=== PATIENT | female | born 1995 | race Caucasian/White ===

== ENCOUNTER 2017-05-29 18:39 | Emergency (ER) | payer OTHER ==
[~2017-05-29] VITALS: Ht 147.3 cm; Wt 69.9 kg
[~2017-05-29 18:39] MED LIST: ACET-6134 PO
[2017-05-29 18:41] VITALS: BP 134/83
--- NOTE | 2017-05-29 19:05 | NUR ---
PT TAKEN TO BED 8
--- NOTE | 2017-05-29 19:20 | NUR ---
22Y F BIB FAMILY; FOUND PT DOWN AT HOME----AMS SOMNOLENT --ORIENTED NAME PLACE EVENT--STATED NOVEMBER 2014 FOR TIME; PT ADMITS TO TAKING SEVERAL PILLS TODAY WITH 2 24OZ BEERS--VISUAL / AUDITORY HALLUCINATIONS--ADMITS "THEY TALK TO HER" WONT SAY WHAT EXACTLY THEY TELL HER---PT RESPONSIVE TO VISUAL HALLUCINATION--STATES SEES SHADOWS BECOMES VERY EMOTIONAL (ANXIOUS, TEARFUL) WHEN ASKED IF SHE WANTS TO HURT HERSELF OR ANYONE ELSE ADMITS FEELING DEPRESSED AND STRESSED LATELY HX---MIGRAINE, LARGE INTESTINE REMOVAL 2010 RX---IBUPROFEN
[2017-05-29 19:45] LABS: BASOPHILS # (AUTO) 0.5 K/uL (0.00-0.22); EOSINOPHILS # (AUTO) 0.1 K/uL (0-0.4); EOSINOPHILS % (AUTO) 1.4 % (0.0-4.0); HEMATOCRIT 44.4 % (36-48); HEMOGLOBIN 14.3 g/dL (12.0-16.0); LYMPHOCYTES # (AUTO) 2.6 K/uL (2.5-16.5); LYMPHOCYTES % (AUTO) 37.7 % (20.5-51.1); MEAN CORPUSCULAR HEMOGLOBIN 29 pg (27-31); MEAN CORPUSCULAR HGB CONC 32 g/dL (33-37); MEAN CORPUSCULAR VOLUME 90 fL (80-94); MONOCYTES # (AUTO) 0.2 K/uL (0.8-1.0); NEUTROPHILS # (AUTO) 3.4 K/uL (1.8-7.7); PLATELET COUNT (AUTO) 266 K/uL (140-450); RED BLOOD CELL COUNT(AUTO) 4.96 MIL/uL (4.20-5.40); RED CELL DISTRIBUTION WIDTH 11.8 % (11.6-13.7); WHITE BLOOD COUNT (AUTO) 6.8 K/uL (4.8-10.8)
[2017-05-29] MEDS ORDERED: NACL 0.9% 1,000 ML IV ONE (19:45)
[2017-05-29] MEDS ORDERED: ONDANSETRON 4 MG/2 ML VIAL IVP ONE (19:45)
[2017-05-29 19:58] LABS: ANION GAP 16.9 (8-16); CALCIUM 8.6 mg/dL (8.5-10.1); CARBON DIOXIDE 24.2 mmol/L (21-32); CREATININE 0.5 mg/dL (0.6-1.3); POTASSIUM 4.1 mmol/L (3.5-5.1)
[2017-05-29 20:03] LABS: AMPHETAMINE, URINE NEG. ng/ml (NEG <=1000); BARBITURATE, URINE NEG. ng/ml (NEG <=200); BENZODIAZEPINE, URINE NEG. ng/mL (NEG <=200); CANNABINOID, URINE NEG. ng/mL (NEG <=50); COCAINE, URINE NEG. ng/mL (NEG <=300); OPIATE, URINE NEG. ng/mL (NEG <=2000); PHENCYCLIDINE SCREEN,URINE NEG. ng/mL (NEG <=25)
[2017-05-29 20:04] LABS: ALBUMIN 4.3 g/dL (3.4-5.0); TOTAL BILIRUBIN 0.2 mg/dL (0.0-1.0); TOTAL PROTEIN, SERUM 8.3 g/dL (6.4-8.2)
[2017-05-29 20:13] LABS: ALCOHOL, BLOOD 149 mg/dL (<3)
[2017-05-29 20:14] LABS: SALICYLATE < 2.8 mg/dL (2.8-20.0)
[2017-05-29 20:15] LABS: ACETAMINOPHEN 40.6 ug/ml (10-30)
--- NOTE | 2017-05-29 20:44 | NUR ---
Dr. Walters evaluating patient at bedside.
[2017-05-29] MEDS ORDERED: HYDROmorphone 1 MG/ML AMP IVP ONE (21:00)
--- NOTE | 2017-05-29 21:24 | NUR ---
PT RETURN FROM CT
[2017-05-29 21:28] LABS: PROTHROMBIN TIME 9.9 secs (10.8-13.4)
[2017-05-30] MEDS ORDERED: HYDROmorphone 1 MG/ML AMP IVP ONE (00:25)
[2017-05-30] MEDS ORDERED: KETOROLAC 30 MG/ML VIAL IVP ONE (00:25)
[2017-05-30] MEDS ORDERED: ONDANSETRON 4 MG/2 ML VIAL IVP ONE (00:50)
[2017-05-30] MEDS ORDERED: ONDANSETRON 4 MG/2 ML VIAL ONE (00:57)
--- NOTE | 2017-05-30 02:10 | NUR ---
IV removed, catheter intact and site benign. Applied folded 4x4 gauze and tape to stop bleeding.
--- NOTE | 2017-05-30 02:21 | NUR ---
Patient discharged with v/s stable. Written and verbal after care instructions given and explained. Patient verbalized understanding. Ambulatory with steady gait. All questions addressed prior to discharge. Advised to follow up with PMD.
[2017-05-30 02:22] VITALS: BP 127/72
== END 2017-05-30 02:21 | disposition home or self-care (01) ==
LOC: MED 18:39
DX: F10.129 Alcohol abuse with intoxication, unspecified (principal); R51 Headache; F45.8 Other somatoform disorders; K21.9 Gastro-esophageal reflux disease without esophagitis; Z79.899 Other long term (current) drug therapy
CPT/HCPCS: 36415; 70450; 80053; 80305; 81025; 84484; 85025; 85610; 96361; 96374; 96375; 96376; 99285; G0480; G0482; J1170; J1885; J2405; J7030; 81002

== ENCOUNTER 2018-07-06 20:36 | Emergency (ER) | payer OTHER ==
[~2018-07-06] VITALS: Ht 162.6 cm; Wt 79.4 kg
--- NOTE | 2018-07-06 20:36 | NUR ---
BIB WHEELCHAIR TO ER BED 5
[2018-07-06 20:49] VITALS: BP 124/80
--- NOTE | 2018-07-06 20:50 | NUR ---
23/F BIB W POSSIBLE OVERDOSE WITH TYLENOL AND MOTRIN TODAY. ADMITS TO INGESTING TO 7 TYLENOL, UNKNOWN MOTRIN DOSING. PT IS SOMNOLENT AND WONT ANSWER QUESTIONS. GCS 13 WITH PURPOSEFUL MOVEMENT AND CONFUSION. 16RR EVEN AND UNLABORED. UNKNOWN MEDICAL HISTORY.
[2018-07-06] MEDS ORDERED: NACL 0.9% 2,000 ML IV ONE (21:15)
[2018-07-06] MEDS ORDERED: ONDANSETRON 4 MG/2 ML VIAL IVP ONE (21:15)
--- NOTE | 2018-07-06 21:22 | NUR ---
SPOKEN WITH POISON CONTROL REP LES Addendum: 07/06/18 at 2225 by [email or web address] LES STATED THAT A TYLENOL NEEDS TO BE DRAWN AT 0030, IF LEVEL >150 OR LF TESTS ELEVATED MUCOMYST TREATMENT RECOMENDED. CHEMISTRY NEEDS TO BE DRAWN INITIALLY. IF ASYMPTOMATIC PT JUST NEEDS TO BE MONITORED CLOSELY. DR. MORAN MADE AWARE.
--- NOTE | 2018-07-06 21:30 | NUR ---
LAB AT BEDSIDE, UA AND BLOOD SENT TO LAB
[2018-07-06 21:38] LABS: APPEARANCE,URINE CLEAR (CLEAR); BILIRUBIN,URINE NEGATIVE (NEGATIVE); BLOOD, URINE NEGATIVE (NEGATIVE); COLOR,URINE YELLOW (YELLOW); LEUKOCYTE ESTERASE ,URINE NEGATIVE (NEGATIVE); NITRITE, URINE NEGATIVE (NEGATIVE); UGLUCOSE NEGATIVE (NEGATIVE)
[2018-07-06 21:39] LABS: BASOPHILS % (AUTO) 0.8 % (0.0-2.0); EOSINOPHILS % (AUTO) 0.8 % (0.0-4.0); HEMOGLOBIN 13.3 g/dL (12.0-16.0); LYMPHOCYTES # (AUTO) 2.7 K/uL (2.5-16.5); LYMPHOCYTES % (AUTO) 47.8 % (20.5-51.1); MEAN CORPUSCULAR HEMOGLOBIN 31 pg (27-31); MEAN CORPUSCULAR HGB CONC 33 g/dL (33-37); MEAN CORPUSCULAR VOLUME 93.4 fL (80-94); MONOCYTES # (AUTO) 0.2 K/uL (0.8-1.0); MONOCYTES % (AUTO) 4.4 % (1.7-9.3); NEUTROPHILS # (AUTO) 2.6 K/uL (1.8-7.7); NEUTROPHILS % (AUTO) 46.2 % (42.2-75.2); PLATELET COUNT (AUTO) 290 K/uL (140-450); RED BLOOD CELL COUNT(AUTO) 4.28 MIL/uL (4.20-5.40); RED CELL DISTRIBUTION WIDTH 13.5 % (11.6-13.7); WHITE BLOOD COUNT (AUTO) 5.6 K/uL (4.8-10.8)
[2018-07-06 21:46] LABS: BARBITURATE, URINE NEG. ng/ml (NEG <=200); BENZODIAZEPINE, URINE NEG. ng/mL (NEG <=200); CANNABINOID, URINE NEG. ng/mL (NEG <=50); COCAINE, URINE NEG. ng/mL (NEG <=300); OPIATE, URINE NEG. ng/mL (NEG <=2000); PHENCYCLIDINE SCREEN,URINE NEG. ng/mL (NEG <=25)
--- NOTE | 2018-07-06 21:46 | NUR ---
PERFORMED EKG AT BEDSIDE WHILE PT COVERED IN GOWN AND BLANKET. SPOUSE AT BEDSIDE
[2018-07-06 22:09] LABS: RBC,URINE 0-5 (RARE) /HPF (0-5); WBC,URINE 0-5 (RARE) /HPF (0-5)
[2018-07-06 22:11] LABS: ANION GAP 12.7 (8-16); CARBON DIOXIDE 28.4 mmol/L (21-32); CHLORIDE 106 mmol/L (98-107); CREATININE 0.4 mg/dL (0.6-1.3); GFR ARICAN-AMERICAN 250 mL/min (>90); GLUCOSE 99 mg/dL (74-106); POTASSIUM 4.1 mmol/L (3.5-5.1); SODIUM SERUM 143 mmol/L (136-145); UREA NITROGEN, BLOOD 5 mg/dL (7-18)
[2018-07-06 22:16] LABS: ALBUMIN 4.6 g/dL (3.4-5.0); ASPARTATE AMINOTRANSFERASE 30 U/L (15-37); TOTAL BILIRUBIN 0.3 mg/dL (0.0-1.0)
[2018-07-06 22:17] LABS: ACETAMINOPHEN < 0.5 ug/ml (10-30); SALICYLATE < 2.8 mg/dL (2.8-20.0)
--- NOTE | 2018-07-06 22:55 | NUR ---
PT'S INSISTING ON TAKING HIS OUT AMA, ER MD MADE AWARE. ER MD RECOMMENDED PT TO STAY. FAMILY INFORMED BUT STILL INSISTS ON LEAVING. PT TOOK OUT HER IV ACCESS. PT REMAINS INTOXICATED, UNABLE TO MAKE DECISION FOR HERSELF. PT UNABLE TO AMBULATE WITH STEADY GAIT.
--- NOTE | 2018-07-06 23:03 | NUR ---
MC/PD CALLED ETA 5MINS
--- NOTE | 2018-07-06 23:35 | NUR ---
MC/PD AT BEDSIDE. PT EVAL FOR 5150-PT DOES NOT MAKE CRITERIA.
--- NOTE | 2018-07-07 00:40 | NUR ---
PT ASLEEP ON BED AT THIS TIME. NO ACUTE DISTRESS NOTED
[2018-07-07 02:17] LABS: ALBUMIN 3.8 g/dL (3.4-5.0); ASPARTATE AMINOTRANSFERASE 25 U/L (15-37); BILIRUBIN,DIRECT 0.1 mg/dL (0.0-0.3); TOTAL BILIRUBIN 0.2 mg/dL (0.0-1.0)
[2018-07-07 02:26] LABS: ACETAMINOPHEN < 0.5 ug/ml (10-30)
--- NOTE | 2018-07-07 02:54 | NUR ---
Patient presented to facility under the influence of Alcohol. Patient is currently ambulatory with steady gait, able to walk unassisted. Positive gag reflex. Alert and oriented. Is not driving self for discharge out of facility. Patient discharged with v/s stable. Written and verbal after care instructions given and explained. Patient verbalized understanding. Ambulatory with steady gait. All questions addressed prior to discharge. Advised to follow up with PMD.
[2018-07-07 02:59] VITALS: BP 106/67
--- NOTE | 2018-07-07 02:59 | NUR ---
PT LEFT WITHOUT PERSONAL BELONGINGS.
== END 2018-07-07 02:56 | disposition home or self-care (01) ==
LOC: MED 20:36
DX: T51.92XA Toxic effect of unspecified alcohol, intentional self-harm, initial encounter (principal); Y92.89 Other specified places as the place of occurrence of the external cause; K21.9 Gastro-esophageal reflux disease without esophagitis; Z79.1 Long term (current) use of non-steroidal anti-inflammatories (NSAID)
CPT/HCPCS: 36415; 80053; 80076; 80305; 81001; 81025; 85025; 93005; 96374; 99285; G0480; G0482; J2405

== ENCOUNTER 2019-04-16 11:51 | Emergency (ER) | payer OTHER ==
[~2019-04-16] VITALS: Ht 149.9 cm; Wt 69.1 kg
[2019-04-16 12:13] VITALS: BP 130/81
--- NOTE | 2019-04-16 12:17 | NUR ---
24 Y FEMALE BIB SELF WITH C/O LOWER BACK PAIN S/P LIFTING BOXES AT [employer] THIS MORNING AT 0600, UNABLE TO SIT D/T TO LOW BACK PAIN. BELIEVES SHE PULLED SOMETHING. AMBULATES STEADY GAIT WITH PAIN. PAIN SHARP AND SEVERE RATING 10/10. VSS AT THIS TIME. AA0X4. BED IS DOWN, LOCKED, BED RAIL X 1, ERMD TO SEE PT. HX; DENIES RX; DENIES
--- NOTE | 2019-04-16 12:43 | NUR ---
PT BEING TAKEN TO XRAY VIA WHEELCHAIR
--- NOTE | 2019-04-16 12:54 | NUR ---
PT BACK FROM XRAY AT THIS TIME
--- NOTE | 2019-04-16 13:20 | NUR ---
DR FRIED AT BEDSIDE
[2019-04-16] MEDS ORDERED: KETOROLAC 30 MG/ML VIAL IM ONE (13:25)
--- NOTE | 2019-04-16 14:30 | NUR ---
PAIN 4/10 AT THIS TIME
--- NOTE | 2019-04-16 14:35 | NUR ---
WORKERS COMP COMPLETED
[2019-04-16 14:37] VITALS: BP 126/78
--- NOTE | 2019-04-16 14:37 | NUR ---
Patient discharged with v/s stable. Written and verbal after care instructions given and explained. Patient alert, oriented and verbalized understanding of instructions. Ambulatory with steady gait. All questions addressed prior to discharge. ID band removed. Patient advised to follow up with PMD. Rx of NORCO, IBUPROFEN given. Patient educated on indication of medication including possible reaction and side effects. Opportunity to ask questions provided and answered. PT PROVIDED WITH EXCUSE FROM WORK.
== END 2019-04-16 14:37 | disposition home or self-care (01) ==
LOC: MED 11:51
DX: M54.5 Low back pain (principal); Z90.49 Acquired absence of other specified parts of digestive tract; Z79.899 Other long term (current) drug therapy; X50.0XXA Overexertion from strenuous movement or load, initial encounter; Y93.89 Activity, other specified; Y92.89 Other specified places as the place of occurrence of the external cause; Y99.0 Civilian activity done for income or pay
CPT/HCPCS: 72110; 99283; J1885; 81025

== ENCOUNTER 2020-06-25 19:35 | Inpatient (IN) | payer MEDICAID, OTHER ==
[~2020-06-25] VITALS: Ht 149.9 cm; Wt 70.8 kg
--- NOTE | 2020-06-25 19:56 | NUR ---
pt ambulated to bed 10
[2020-06-25 19:59] VITALS: BP 136/77
--- NOTE | 2020-06-25 20:02 | NUR ---
25 YO F BIB SELF FOR C/C OF LLQ ABD PAIN THAT FEELS LIKE PRESSURE X4 DAYS. PT STATES SHE HAS NOT BEEN ABLE TO URINATE IN 4 DAYS. DENIES N/V/D, FEVER, COUGH, SOB. LBM WAS 20 MIN SOFT AND FORMED. PT STATES SHE TOOK 800 MG OF IBUPROFEN AT 3PM WITHOUT RELIEF OF SYMPTOMS. NKA NO MED HX NO RX Addendum: 06/25/20 at 6 by [email or web address] 25 YO F BIB SELF FOR C/C OF LLQ ABD PAIN THAT FEELS LIKE PRESSURE X4 DAYS. PT STATES SHE HAS NOT BEEN ABLE TO URINATE IN 4 DAYS. DENIES N/V/D, FEVER, COUGH, SOB. LBM WAS 20 MIN SOFT AND FORMED. PT STATES SHE TOOK 800 MG OF IBUPROFEN AT 3PM WITHOUT RELIEF OF SYMPTOMS. NKA MED: COLECTOMY, FAP NO RX
--- NOTE | 2020-06-25 20:04 | NUR ---
PT AMBULATED TO WITH STEADY GAIT TO TRY AND PRODUCE URINE SAMPLE.
--- NOTE | 2020-06-25 20:08 | NUR ---
PT UNABLE TO PROVIDE URINE SAMPLE. STATES SHE HAS INCREASED PAIN WHILE ATTEMPTING TO URINATE. ERMD MADE AWARE.
[2020-06-25] MEDS ORDERED: NACL 0.9% 1,000 ML IV ONE (20:18)
[2020-06-25] MEDS ORDERED: MORPHINE SULFATE 4 MG/ML SYR IVP ONE ×2 (20:20→22:50)
[2020-06-25] MEDS ORDERED: ONDANSETRON 4 MG/2 ML VIAL IVP ONE (20:20)
--- NOTE | 2020-06-25 20:29 | NUR ---
LAB AT BEDSIDE
[2020-06-25 20:36] LABS: BASOPHILS % (AUTO) 0.5 % (0.0-2.0); EOSINOPHILS # (AUTO) 0.1 K/uL (0-0.4); EOSINOPHILS % (AUTO) 1.6 % (0.0-4.0); HEMATOCRIT 38.1 % (36-48); HEMOGLOBIN 12.8 g/dL (12.0-16.0); LYMPHOCYTES # (AUTO) 2.5 K/uL (2.5-16.5); MEAN CORPUSCULAR HEMOGLOBIN 31 pg (27-31); MEAN CORPUSCULAR HGB CONC 34 g/dL (33-37); MEAN CORPUSCULAR VOLUME 92.1 fL (80-94); MONOCYTES # (AUTO) 0.4 K/uL (0.8-1.0); MONOCYTES % (AUTO) 5.3 % (1.7-9.3); NEUTROPHILS # (AUTO) 4.3 K/uL (1.8-7.7); NEUTROPHILS % (AUTO) 58.6 % (42.2-75.2); PLATELET COUNT (AUTO) 286 K/uL (140-450); RED BLOOD CELL COUNT(AUTO) 4.13 MIL/uL (4.20-5.40); RED CELL DISTRIBUTION WIDTH 13.1 % (11.6-13.7); WHITE BLOOD COUNT (AUTO) 7.3 K/uL (4.8-10.8)
--- NOTE | 2020-06-25 20:40 | NUR ---
# 16 FR Urinary catheter inserted utilizing sterile technique. Immediate return of 10ML ml urine noted. Urine sample collected and sent to lab. Pt tolerated procedure WELL.
[2020-06-25 20:54] LABS: ANION GAP 14.8 (8-16); CREATININE 0.5 mg/dL (0.6-1.3); POTASSIUM 3.8 mmol/L (3.5-5.1); TOTAL BILIRUBIN 0.2 mg/dL (0.0-1.0)
--- NOTE | 2020-06-25 21:08 | NUR ---
PT TAKEN TO CT VIA SIOBHAN
--- NOTE | 2020-06-25 21:17 | NUR ---
ERMD MADE AWARE THAT PT REFUSING BOLUS DUE TO FEELING OF NEEDING TO URINATE AND NOT BEING ABLE TO
--- NOTE | 2020-06-25 21:18 | NUR ---
PT RETURNED FROM CT VIA [facility]
--- NOTE | 2020-06-25 21:20 | NUR ---
PT STATES HER 9/10 PAIN HAS DECREASED TO 3/10 POST IVP OF MORPHINE. PT PLACED BACK ON WELFARE CASE WORKER. ALL PT NEEDS MET AT THIS TIME.
[2020-06-25 21:37] LABS: APPEARANCE,URINE CLEAR (CLEAR); BILIRUBIN,URINE NEGATIVE (NEGATIVE); BLOOD, URINE NEGATIVE (NEGATIVE); COLOR,URINE YELLOW (YELLOW); LEUKOCYTE ESTERASE ,URINE NEGATIVE (NEGATIVE); NITRITE, URINE NEGATIVE (NEGATIVE); UGLUCOSE NEGATIVE (NEGATIVE)
--- NOTE | 2020-06-25 21:54 | NUR ---
US AT BEDSIDE
[2020-06-25] MEDS ORDERED: KETOROLAC 30 MG/ML VIAL IVP ONE (22:30)
[2020-06-26] MEDS ORDERED: MORPHINE SULFATE 4 MG/ML SYR IVP ONE (00:30)
[2020-06-26] MEDS ORDERED: NACL 0.9% 1,000 ML IV SCH (00:44)
[2020-06-26] MEDS ORDERED: ZOLPIDEM 5 MG TAB PO PRN (00:45)
[2020-06-26] MEDS ORDERED: ACETAMINOPHEN 325 MG TAB PO PRN (00:45)
[2020-06-26] MEDS ORDERED: HYDROcodone/APAP 5/325 MG 1 TAB TAB PO PRN (00:45)
[2020-06-26] MEDS ORDERED: DOCUSATE SODIUM 100 MG GELCAP PO PRN (00:45)
[2020-06-26] MEDS ORDERED: ONDANSETRON 4 MG/2 ML VIAL IVP PRN (00:45)
[2020-06-26] MEDS ORDERED: LORazepam 2 MG/ML VIAL IM/IVP PRN (00:45)
--- NOTE | 2020-06-26 01:15 | NUR ---
PT ADMITTED AND WILL GO TO ROOM 104A.
--- NOTE | 2020-06-26 01:45 | NUR ---
DR ELENA AT BEDSIDE EVALUATING PT
--- NOTE | 2020-06-26 01:53 | NUR ---
Patient will be admitted to care of [facility]. Admited to TELE. Will go to room 104A. Belongings list completed. Report to HANK ANAND.
--- NOTE | 2020-06-26 01:53 | NUR ---
ADMITTED 25, F, FROM HOME, TRANSPORTED VIA GURNEY FROM [place] [id number], DENIES PAIN, NO SOB, VITAL SIGNS TAKEN, MRSA NARES SWAB DONE, LOW BED IN PLACE, PLAN OF CARE DISCUSSED, CALL LIGHT WITHIN REACH.
[2020-06-26 02:34] LABS: CHOL/HDL RATIO 3.1 (1-4.5); FREE T4 (FREE THYROXINE) 0.91 ng/dL (0.76-1.46); MAGNESIUM 1.9 mg/dL (1.8-2.4); PHOSPHORUS 2.5 mg/dL (2.5-4.9); THYROID STIMULATING HORMONE 1.51 uIU/mL (0.34-3.74)
--- NOTE | 2020-06-26 02:58 | NUR ---
SPOKE TO DR. MCKINNEY RE: PATIENT'S DIET, I TOLD THAT PATIENT IS HUNGRY. SHE SAID TO GIVE PATIENT SANDWICH NOW AND THEN NPO, SHE ALSO ORDERED TEST, NOTED AND CARRIED OUT.
[2020-06-26 03:03] LABS: PROTHROMBIN TIME 9.3 secs (10.8-13.4)
[2020-06-26 03:28] LABS: BARBITURATE, URINE NEGATIVE ng/ml (NEG <=200); BENZODIAZEPINE, URINE NEGATIVE ng/mL (NEG <=200); CANNABINOID, URINE NEGATIVE ng/mL (NEG <=50); COCAINE, URINE NEGATIVE ng/mL (NEG <=300)
[2020-06-26 03:29] LABS: OPIATE, URINE NEGATIVE ng/mL (NEG <=2000); PHENCYCLIDINE SCREEN,URINE NEGATIVE ng/mL (NEG <=25)
[2020-06-26 04:00] VITALS: BP 107/68
--- NOTE | 2020-06-26 05:12 | NUR ---
C/O LLQ ABDOMINAL PAIN, 04/28, REPOSITIONED AND NORCO GIVEN ORDERED.
[2020-06-26] MEDS: MORPHINE SULFATE 2 MG/ML SYR IVP PRN ×2 (05:59→08:56)
--- NOTE | 2020-06-26 05:59 | NUR ---
PATIENT CALLED AGAIN AND SAID THAT SHE'S STILL IN PAIN AND THAT IT WASN'T RELIEVED. PAIN IS 7/10, LLQ ABDOMINAL AREA, MORPHINE IVP GIVEN ORDERED, TOLERATED WELL. CALL LIGHT WITHIN REACH.
--- NOTE | 2020-06-26 06:37 | NUR ---
PATIENT HAS BEEN SCREENED AND CATEGORIZED LOW NUTRITION RISK. PATIENT WILL BE SEEN WITHIN 7 DAYS OF ADMISSION. 07/03/20 HUE CHENEY MS, RDN
--- NOTE | 2020-06-26 07:30 | NUR ---
ENDORSED PATIENT TO HANK JOY THAT PATIENT IS COMPLAINING OF PAIN AND THE LAST TIME PAIN PILL WAS GIVEN TO PATIENT AND FOR CONTINUITY OF CARE. ALSO, PATIENT IS AWARE THAT WE CANNOT GIVE ANOTHER PAIN MED BECAUSE THE INTERVAL IS TOO SOON.
--- NOTE | 2020-06-26 08:00 | NUR ---
RECEIVED REPORT FROM HANK HERNANDEZ. PATIENT ALERT AWAKE ORIENTED X4, NOT IN ANY DISTRESS NOTED. INITIAL ASSESSMENT INITIATED. WITH IVF ON GOING AND INFUSING WELL. ON MONITOR SHOWS SR. C/O ABDOMINAL PAIN, MEDICATED BY THE INTERLOCKER. EXPLAINED TO THE PATIENT THAT MEDICATION IS NOT DUE AT THIS TIME AND HER BP IS LOW. NEEDS ATTENDED. WILL CONTINUE TO MONITOR.
[2020-06-26 08:25] VITALS: BP 99/63
--- NOTE | 2020-06-26 10:45 | NUR ---
DR. RODRIGUEZ IS TALKING TO [facility] PATIENT AT THIS TIME. WILL CONTINUE TO MONITOR.
--- NOTE | 2020-06-26 11:01 | NUR ---
(06/26/20) RD INITIAL ASSESSMENT COMPLETED PLEASE REFER TO NUTRITION ASSESSMENT UNDER CARE ACTIVITY FOR ESTIMATED NUTRITIONAL NEEDS. RD RECOMMENDATIONS: 1. CONTINUE ON PUREE/NTL TOLERATED. 2. CONTINUE ENSURE WITH MEALS TID TOLERATED. 3. CONSULT RDN PRN. 4. RD WILL F/U 3-5 DAYS; MODERATE RISK. HUE CHENEY MS, RDN
[2020-06-26 11:30] VITALS: BP 101/71
[2020-06-26] MEDS ORDERED: KETOROLAC 30 MG/ML VIAL IVP SCH (12:35)
--- NOTE | 2020-06-26 12:45 | NUR ---
PATIENT LEFT AMA IN SPITE OF EXPLAINING THE RISK AND CONSEQUENCES. ADVISE PATIENT TO FOLLOW UP WITH HER PCP AND FOLLOW UP WITH OB GYNE.
== END 2020-06-26 12:45 | disposition left against medical advice (07) | DRG 532 ==
LOC: MED 19:35 → MTU 06-26 00:50
PROVIDERS: ADMIT Family Medicine; ATTEND Family Medicine
DX: N83.202 Unspecified ovarian cyst, left side (principal); K80.20 Calculus of gallbladder without cholecystitis without obstruction; E11.9 Type 2 diabetes mellitus without complications; E66.9 Obesity, unspecified; D12.6 Benign neoplasm of colon, unspecified; Z82.5 Family history of asthma and other chronic lower respiratory diseases; Z82.49 Family history of ischemic heart disease and other diseases of the circulatory system; Z68.31 Body mass index [BMI] 31.0-31.9, adult; Z53.29 Procedure and treatment not carried out because of patient's decision for other reasons
CPT/HCPCS: 36415; 71045; 76830; 80053; 80305; 81003; 81025; 82150; 83036; 83690; 83735; 83880; 84100; 84439; 84443; 84484; 85025; 85610; 85730; 87081; 96374; 96375; 96376; 99285; J1885; J2270; J2405; J7030; Q0092

== ENCOUNTER 2021-03-23 11:31 | Emergency (ER) | payer MEDICAID, OTHER ==
[~2021-03-23] VITALS: Ht 149.9 cm; Wt 72.6 kg
[~2021-03-23 11:31] MED LIST changes: +ACET-10509 PO; -ACET-6134 PO
[2021-03-23 11:47] VITALS: BP 115/71
--- NOTE | 2021-03-23 11:47 | NUR ---
Patient to bed 12. RN evaluating the patient at bedside.
--- NOTE | 2021-03-23 12:56 | NUR ---
Dr. Benson at pt bedside for further evaluation.
--- NOTE | 2021-03-23 13:08 | NUR ---
26 Y/O FEMALE C/O GENERALIZED ABDOMINAL PAIN 8/10 AND DIARRHEA X 1 DAY. TOOK TYLENOL AND IBUPROFEN LAST NIGHT WHICH PROVIDED NO RELIEF. DENIES VOMITING. DENIES FEVER/CHILLS. ABDOMEN IS SOFT, NON-TENDER, BOWEL SOUNDS ACTIVE X4. LAST BM 03/21/21. PMH: ANXIETY, DEPRESSION NKA
[2021-03-23] MEDS: NACL 0.9% 1,000 ML IV ONE (13:30)
[2021-03-23] MEDS: ONDANSETRON 4 MG/2 ML VIAL IVP ONE (13:30)
[2021-03-23] MEDS: MORPHINE SULFATE 4 MG/ML SYR IVP ONE ×2 (13:31→15:42)
[2021-03-23 13:35] LABS: BASOPHILS % (AUTO) 0.5 % (0.0-2.0); EOSINOPHILS # (AUTO) 0.1 K/uL (0-0.4); EOSINOPHILS % (AUTO) 1.8 % (0.0-4.0); HEMATOCRIT 36.9 % (36-48); HEMOGLOBIN 12.5 g/dL (12.0-16.0); LYMPHOCYTES # (AUTO) 2.4 K/uL (2.5-16.5); LYMPHOCYTES % (AUTO) 39.5 % (20.5-51.1); MEAN CORPUSCULAR HEMOGLOBIN 30 pg (27-31); MEAN CORPUSCULAR HGB CONC 34 g/dL (33-37); MEAN CORPUSCULAR VOLUME 88.6 fL (80-94); MONOCYTES # (AUTO) 0.4 K/uL (0.8-1.0); MONOCYTES % (AUTO) 5.8 % (1.7-9.3); NEUTROPHILS # (AUTO) 3.2 K/uL (1.8-7.7); NEUTROPHILS % (AUTO) 52.4 % (42.2-75.2); PLATELET COUNT (AUTO) 292 K/uL (140-450); RED BLOOD CELL COUNT(AUTO) 4.17 MIL/uL (4.20-5.40); RED CELL DISTRIBUTION WIDTH 13.3 % (11.6-13.7); WHITE BLOOD COUNT (AUTO) 6.1 K/uL (4.8-10.8)
[2021-03-23 14:24] LABS: ALBUMIN 3.8 g/dL (3.4-5.0); ANION GAP 11.9 (8-16); CARBON DIOXIDE 26.1 mmol/L (21-32); CREATININE 0.5 mg/dL (0.6-1.3); TOTAL BILIRUBIN 0.3 mg/dL (0.0-1.0)
[2021-03-23 14:42] LABS: PROTHROMBIN TIME 9.3 secs (10.8-13.4)
[2021-03-23] MEDS ORDERED: ACET-2619 PO (15:41)
--- NOTE | 2021-03-23 15:41 | NUR ---
Pt resting, visible equal rise and fall of chest. VSS, will continue to monitor.
[2021-03-23] MEDS ORDERED: ONDA-24 SL (15:42)
[2021-03-23 16:04] VITALS: BP 115/71
--- NOTE | 2021-03-23 16:05 | NUR ---
Patient discharged with v/s stable. Written and verbal after care instructions given and explained. Patient alert, oriented and verbalized understanding of instructions. Ambulatory with steady gait. All questions addressed prior to discharge. ID band removed. Patient advised to follow up with PMD. Rx of acetaminophen 325mg q8h PO prn pain, and zofran 4mg ODT q8h given. Patient educated on indication of medication including possible reaction and side effects. Opportunity to ask questions provided and answered.
== END 2021-03-23 16:04 | disposition home or self-care (01) ==
LOC: MED 11:31
DX: K80.70 Calculus of gallbladder and bile duct without cholecystitis without obstruction (principal); R10.2 Pelvic and perineal pain; Z98.890 Other specified postprocedural states
CPT/HCPCS: 36415; 76705; 76856; 80053; 81002; 81025; 83690; 84702; 85025; 85610; 93976; 96361; 96374; 96375; 99285; J2270; J2405; J7030

== ENCOUNTER 2021-04-19 12:41 | Emergency (ER) | payer OTHER ==
[~2021-04-19] VITALS: Ht 149.9 cm; Wt 75.7 kg
[~2021-04-19 12:41] MED LIST changes: +ACET-2619 PO; +ONDA-24 SL
[2021-04-19 12:45] VITALS: BP 106/70
--- NOTE | 2021-04-19 12:51 | NUR ---
Patient ambulated to bed 1. RN evaluating the patient at bedside.
--- NOTE | 2021-04-19 13:15 | NUR ---
26 y/o F brought in from home with c/c abdominal pain x 1 day. Patient A&Ox4, ambulatory, reports LLQ pain while exercising; states 6/10, sharp/intermittent, radiating to left flank. Patient states +dysuria and +nausea -vomiting +diarrhea. Patient states diarrhea is normal d/t sx removal of big intestines. Patient also reports bright red rectal bleeding x 1 week, however, has not bled today; states hx of polyps. Denies fever, chills, blurry vision, headache, SOB, CP, other urinary symptoms. Last BM today; diarrhea. Pt denies any medications prior to arrival. Pt placed into gown; urine sample collected. Bed locked in lowest position, side rails x 1, call light in reach. PMH: Depression Meds: Resperidone NKA Sx: "Removal of big intestines"
--- NOTE | 2021-04-19 13:33 | NUR ---
Dr. Bullard is evaluating patient at bedside.
[2021-04-19] MEDS ORDERED: KETOROLAC 30 MG/ML VIAL IM ONE (13:35)
[2021-04-19] MEDS ORDERED: HYDROcodone/APAP 5/325 MG 1 TAB TAB PO ONE (13:35)
--- NOTE | 2021-04-19 13:40 | NUR ---
Blood sample collected, handed to CPT Misty at bedside.
--- NOTE | 2021-04-19 13:40 | NUR ---
UA sample collected, handed to CPT Misty at ER bedside.
[2021-04-19 13:49] LABS: BASOPHILS % (AUTO) 0.4 % (0.0-2.0); EOSINOPHILS # (AUTO) 0.1 K/uL (0-0.4); EOSINOPHILS % (AUTO) 1.8 % (0.0-4.0); HEMATOCRIT 37.9 % (36-48); HEMOGLOBIN 12.9 g/dL (12.0-16.0); LYMPHOCYTES # (AUTO) 2.5 K/uL (2.5-16.5); LYMPHOCYTES % (AUTO) 37.1 % (20.5-51.1); MEAN CORPUSCULAR HEMOGLOBIN 30 pg (27-31); MEAN CORPUSCULAR HGB CONC 34 g/dL (33-37); MEAN CORPUSCULAR VOLUME 87.4 fL (80-94); MONOCYTES # (AUTO) 0.4 K/uL (0.8-1.0); NEUTROPHILS # (AUTO) 3.7 K/uL (1.8-7.7); NEUTROPHILS % (AUTO) 54.7 % (42.2-75.2); PLATELET COUNT (AUTO) 292 K/uL (140-450); RED BLOOD CELL COUNT(AUTO) 4.34 MIL/uL (4.20-5.40); RED CELL DISTRIBUTION WIDTH 13.1 % (11.6-13.7); WHITE BLOOD COUNT (AUTO) 6.7 K/uL (4.8-10.8)
[2021-04-19 14:12] LABS: ANION GAP 14.5 (8-16); CARBON DIOXIDE 26.1 mmol/L (21-32); CREATININE 0.6 mg/dL (0.6-1.3); POTASSIUM 3.6 mmol/L (3.5-5.1); TOTAL BILIRUBIN 0.5 mg/dL (0.0-1.0)
[2021-04-19 14:12] LABS: APPEARANCE,URINE CLEAR (CLEAR); BILIRUBIN,URINE NEGATIVE (NEGATIVE); BLOOD, URINE NEGATIVE (NEGATIVE); COLOR,URINE YELLOW (YELLOW); LEUKOCYTE ESTERASE ,URINE TRACE (NEGATIVE); NITRITE, URINE NEGATIVE (NEGATIVE); PH,URINE 5.5 (5.0-9.0); UGLUCOSE NEGATIVE (NEGATIVE)
[2021-04-19 14:34] LABS: RBC,URINE NONE SEEN /HPF (0-5); WBC,URINE 0-5 /HPF (0-5)
[2021-04-19] MEDS ORDERED: NITR100C7 PO (15:54)
[2021-04-19] MEDS ORDERED: BEN10 PO (15:54)
[2021-04-19 16:00] VITALS: BP 106/70
--- NOTE | 2021-04-19 16:00 | NUR ---
Patient discharged with v/s stable. Written and verbal after care instructions given and explained. Patient alert, oriented and verbalized understanding of instructions. Ambulatory with steady gait. All questions addressed prior to discharge. ID band removed. Patient advised to follow up with PMD. Rx of Dicyclomine Hydrochloride, Nitrofurantoin Monohydrate/M-Cryst given. Patient educated on indication of medication including possible reaction and side effects. Opportunity to ask questions provided and answered.
== END 2021-04-19 16:00 | disposition home or self-care (01) ==
LOC: MED 12:41
DX: N39.0 Urinary tract infection, site not specified (principal); R19.7 Diarrhea, unspecified; R11.0 Nausea; Z79.899 Other long term (current) drug therapy; Z98.890 Other specified postprocedural states
CPT/HCPCS: 36415; 74177; 80053; 81001; 81025; 83690; 85025; 96372; 99285; J1885; Q9967

== ENCOUNTER 2021-11-28 17:42 | Emergency (ER) | payer OTHER ==
[~2021-11-28] VITALS: Ht 149.9 cm; Wt 76.2 kg
[~2021-11-28 17:42] MED LIST changes: +BEN10 PO; +NITR100C7 PO; +ONDA-188 SL; -ONDA-24 SL
[2021-11-28 17:52] VITALS: BP 139/66
[2021-11-28] MEDS ORDERED: MORPHINE SULFATE 4 MG/ML SYR IVP ONE ×2 (18:35→20:25)
--- NOTE | 2021-11-28 19:04 | NUR ---
PT AMBULATED TO BED, STEADY GAIT
[2021-11-28 19:11] LABS: BASOPHILS % (AUTO) 0.3 % (0.0-2.0); EOSINOPHILS # (AUTO) 0.2 K/uL (0-0.4); EOSINOPHILS % (AUTO) 2.5 % (0.0-4.0); HEMOGLOBIN 14.4 g/dL (12.0-16.0); LYMPHOCYTES # (AUTO) 2.5 K/uL (2.5-16.5); MEAN CORPUSCULAR HEMOGLOBIN 28 pg (27-31); MEAN CORPUSCULAR HGB CONC 34 g/dL (33-37); MEAN CORPUSCULAR VOLUME 84.4 fL (80-94); MONOCYTES # (AUTO) 0.5 K/uL (0.8-1.0); MONOCYTES % (AUTO) 6.7 % (1.7-9.3); NEUTROPHILS # (AUTO) 3.8 K/uL (1.8-7.7); NEUTROPHILS % (AUTO) 54.5 % (42.2-75.2); PLATELET COUNT (AUTO) 302 K/uL (140-450); RED BLOOD CELL COUNT(AUTO) 5.09 MIL/uL (4.20-5.40); RED CELL DISTRIBUTION WIDTH 14.3 % (11.6-13.7); WHITE BLOOD COUNT (AUTO) 6.9 K/uL (4.8-10.8)
--- NOTE | 2021-11-28 19:19 | NUR ---
Pt report given to AMBER MCKINNEY. Transfer of care at this time.
[2021-11-28 19:35] LABS: ALBUMIN 3.9 g/dL (3.4-5.0); ANION GAP 14.5 (8-16); CARBON DIOXIDE 26.3 mmol/L (21-32); CREATININE 0.6 mg/dL (0.6-1.3); POTASSIUM 3.8 mmol/L (3.5-5.1); TOTAL BILIRUBIN 0.3 mg/dL (0.0-1.0)
--- NOTE | 2021-11-28 19:45 | NUR ---
IV ESTABLISHED, MEDS ORDERED
[2021-11-28] MEDS ORDERED: NACL 0.9% 1,000 ML IV ONE (20:25)
[2021-11-28] MEDS ORDERED: ONDANSETRON 4 MG/2 ML VIAL IVP ONE (20:25)
[2021-11-28] MEDS ORDERED: ONDA-188 PO (21:22)
[2021-11-28] MEDS ORDERED: IBUP-2213 PO (21:25)
[2021-11-28] MEDS ORDERED: ACET-5629 PO (21:25)
[2021-11-28] MEDS ORDERED: ONDANSETRON 4 MG/2 ML VIAL ONE (21:48)
[2021-11-28 21:55] VITALS: BP 139/66
--- NOTE | 2021-11-28 21:55 | NUR ---
Patient discharged with v/s stable. Written and verbal after care instructions given and explained. Patient alert, oriented and verbalized understanding of instructions. Ambulatory with steady gait. All questions addressed prior to discharge. ID band removed. Patient advised to follow up with PMD. Rx of OXYCODONE, ZOFRAN given. Patient educated on indication of medication including possible reaction and side effects. Opportunity to ask questions provided and answered.
== END 2021-11-28 21:55 | disposition home or self-care (01) ==
LOC: MED 17:42
DX: K80.70 Calculus of gallbladder and bile duct without cholecystitis without obstruction (principal); R11.2 Nausea with vomiting, unspecified; Z79.899 Other long term (current) drug therapy; Z98.890 Other specified postprocedural states
CPT/HCPCS: 76700; 80053; 81002; 81025; 83690; 85025; 96361; 96374; 96375; 96376; 99284; J2270; J2405; J7030; Q0092

== ENCOUNTER 2021-12-25 17:43 | Emergency (ER) | payer OTHER ==
[~2021-12-25] VITALS: Ht 149.9 cm; Wt 76.3 kg
[~2021-12-25 17:43] MED LIST changes: +ACET-5629 PO; +IBUP-2213 PO; +ONDA-188 PO
[2021-12-25 18:25] VITALS: BP 109/63
--- NOTE | 2021-12-25 18:33 | NUR ---
JOVANI. HANDED ON URINE CUP.
--- NOTE | 2021-12-25 18:44 | NUR ---
Patient being evaluated by physician at [facility].
[2021-12-25] MEDS ORDERED: KETOROLAC 30 MG/ML VIAL IM ONE (18:45)
[2021-12-25] MEDS ORDERED: MECLIZINE 25 MG TAB PO ONE (18:45)
[2021-12-25] MEDS ORDERED: PROCHLORPERAZINE 10 MG/2 ML VIAL IM ONE (18:45)
--- NOTE | 2021-12-25 18:54 | NUR ---
BIB SELF C/O DIZZINESS, 7/10 MAGANA, NAUSEA, LOWER BACK PAIN X 3 DAYS. COVID TESTED POSITIVE 11/23/21 AND NEGATIVE 12/16/21.
[2021-12-25] MEDS ORDERED: ACET-10509 PO (19:59)
[2021-12-25] MEDS ORDERED: MECL-303 PO (19:59)
[2021-12-25 20:48] VITALS: BP 105/70
--- NOTE | 2021-12-25 20:49 | NUR ---
Patient discharged with v/s stable. Written and verbal after care instructions given FOR VERTIGO AND GENERAL HEADACHE WITHOUT A CAUSE and explained. Patient alert, oriented and verbalized understanding of instructions. Ambulatory with steady gait. All questions addressed prior to discharge. ID band removed. Patient advised to follow up with PMD. Rx of MECLIZINE AND TYNENOL EXTRA STRENGTH given. Patient educated on indication of medication including possible reaction and side effects. Opportunity to ask questions provided and answered.
== END 2021-12-25 20:49 | disposition home or self-care (01) ==
LOC: MED 17:43
DX: R51.9 Headache, unspecified (principal); R42 Dizziness and giddiness; M54.50 Low back pain, unspecified; Z79.899 Other long term (current) drug therapy
CPT/HCPCS: 81002; 81025; 96372; 99284; J0780; J1885; J8597

== ENCOUNTER 2022-02-13 18:55 | Emergency (ER) | payer OTHER ==
[~2022-02-13] VITALS: Ht 149.9 cm; Wt 79.4 kg
[~2022-02-13 18:55] MED LIST changes: +MECL-303 PO
[2022-02-13 19:42] VITALS: BP 121/78
--- NOTE | 2022-02-13 19:45 | NUR ---
TO LOBBY A/W BED AMBULATORY
--- NOTE | 2022-02-13 19:55 | NUR ---
SEEN AND EXAMINED BY ARIESD, WITH ORDERS
--- NOTE | 2022-02-13 20:05 | NUR ---
26 Y/O FEMALER BIB SPOUSE, C/O RED, SWOLLEN, AND PAINFUL LEFT LABIA X3 DAYS. PT STATES THE PAIN HAS BEEN INCREASING DAILY. DENIES N/V/D; SKIN IS PINK/WARM/DRY; AAOX4 WITH EVEN AND STEADY GAIT; LUNGS CLEAR BL; HR EVEN AND REGULAR; PT DENIES ANY FEVER, CP, SOB, OR COUGH AT THIS TIME; PATIENT STATES PAIN OF 5/10 AT THIS TIME; VSS; PATIENT POSITIONED FOR COMFORT; HOB ELEVATED; BEDRAILS UP X2; BED DOWN. ER MD MADE AWARE OF PT STATUS. DENIES PMH, ALLERGIES, OR MEDS
--- NOTE | 2022-02-13 20:28 | NUR ---
PT TAKEN TO BED 11
[2022-02-13] MEDS ORDERED: HYDROcodone/APAP 7.5/325 MG 1 TAB PO ONE (20:30)
[2022-02-13] MEDS ORDERED: LIDOCAINE/EPI 2% 1:100000 20 ML VIAL INJ ONE (20:30)
[2022-02-13 21:53] LABS: APPEARANCE,URINE CLEAR (CLEAR); BILIRUBIN,URINE NEGATIVE (NEGATIVE); BLOOD, URINE NEGATIVE (NEGATIVE); COLOR,URINE YELLOW (YELLOW); LEUKOCYTE ESTERASE ,URINE NEGATIVE (NEGATIVE); NITRITE, URINE NEGATIVE (NEGATIVE); UGLUCOSE NEGATIVE (NEGATIVE)
[2022-02-13] MEDS ORDERED: HYDR-5080 PO (22:07)
[2022-02-13] MEDS ORDERED: IBUP-2213 PO (22:08)
[2022-02-13] MEDS ORDERED: SULF-59 PO (22:09)
[2022-02-13 22:18] VITALS: BP 121/78
--- NOTE | 2022-02-13 22:19 | NUR ---
Patient discharged with v/s stable. Written and verbal after care instructions given and explained. Patient alert, oriented and verbalized understanding of instructions. Ambulatory with steady gait. All questions addressed prior to discharge. ID band removed. Patient advised to follow up with PMD. Rx of IBUPROFEN, NORCO (7.5/325), AND BACTRIM given. Patient educated on indication of medication including possible reaction and side effects. Opportunity to ask questions provided and answered. VSS, A/OX4, AMBULATORY, UNLABORED BREATHING, AND CALM DEMEANOR.
== END 2022-02-13 22:19 | disposition home or self-care (01) ==
LOC: MED 18:55
DX: N75.0 Cyst of Bartholin's gland (principal); Z79.899 Other long term (current) drug therapy
CPT/HCPCS: 56420; 81003; 81025; 99284; J2001

== ENCOUNTER 2022-03-08 19:13 | Emergency (ER) | payer OTHER ==
[~2022-03-08] VITALS: Ht 149.9 cm; Wt 79.8 kg
[~2022-03-08 19:13] MED LIST changes: +HYDR-5080 PO; +SULF-59 PO
[2022-03-08 19:20] VITALS: BP 108/71
--- NOTE | 2022-03-08 19:20 | NUR ---
PATIENT AMBULATED TO BED 8
--- NOTE | 2022-03-08 19:42 | NUR ---
Dr. Kim examining patient.
[2022-03-08] MEDS ORDERED: KETOROLAC 30 MG/ML VIAL IM ONE (19:55)
--- NOTE | 2022-03-08 20:02 | NUR ---
XR AT BEDSIDE
--- NOTE | 2022-03-08 20:45 | NUR ---
27 Y/O FEMALE C/O NONRADIATING CHEST PAIN 05/28 . PATIENT STATED THAT IT FEELS LIKE PRESSURE. PT STATES SHE TOOK IBUPROFEN PRIOR TO ARRIVAL WITH SOME RELIEF. DENIES FEVER/CHILLS. +N/-V. PMHX DENIES MEDS DENIES NKA
--- NOTE | 2022-03-08 21:15 | NUR ---
Patient c/o headache 05/28. md larose
[2022-03-08] MEDS ORDERED: ACETAMINOPHEN EXTRA STRENGTH 500 MG TAB PO ONE (21:50)
[2022-03-08] MEDS ORDERED: IBUP-2213 PO (21:55)
[2022-03-08 22:25] VITALS: BP 108/64
--- NOTE | 2022-03-08 22:29 | NUR ---
Patient discharged with v/s stable. Written and verbal after care instructions given nonspecific CP and explained. Patient alert, oriented and verbalized understanding of instructions. Ambulatory with steady gait. All questions addressed prior to discharge. ID band removed. Patient advised to follow up with PMD. Rx of Ibuprofen given.
--- NOTE | 2022-03-08 22:32 | NUR ---
The patient's care was reviewed and supervised by Lore Byers RN.
== END 2022-03-08 22:29 | disposition home or self-care (01) ==
LOC: MED 19:13
DX: R07.89 Other chest pain (principal); X50.0XXA Overexertion from strenuous movement or load, initial encounter; Y93.89 Activity, other specified; Y92.89 Other specified places as the place of occurrence of the external cause; Y99.8 Other external cause status
CPT/HCPCS: 71045; 81025; 93005; 96372; 99283; J1885; Q0092

== ENCOUNTER 2022-04-18 18:21 | Emergency (ER) | payer OTHER ==
[~2022-04-18] VITALS: Ht 149.9 cm; Wt 79.8 kg
[2022-04-18 18:46] VITALS: BP 140/93
--- NOTE | 2022-04-18 20:20 | NUR ---
Dr. Slater examining patient.
--- NOTE | 2022-04-18 20:43 | NUR ---
Blood for labwork drawn from left arm per phelbotomist. Patient tolerated well.
[2022-04-18 21:11] LABS: BASOPHILS # (AUTO) 0.1 K/uL (0.00-0.22); BASOPHILS % (AUTO) 0.6 % (0.0-2.0); EOSINOPHILS # (AUTO) 0.2 K/uL (0-0.4); EOSINOPHILS % (AUTO) 2.1 % (0.0-4.0); HEMATOCRIT 41.3 % (36-48); HEMOGLOBIN 13.8 g/dL (12.0-16.0); LYMPHOCYTES # (AUTO) 3.3 K/uL (2.5-16.5); MEAN CORPUSCULAR HEMOGLOBIN 29 pg (27-31); MEAN CORPUSCULAR HGB CONC 34 g/dL (33-37); MEAN CORPUSCULAR VOLUME 87.1 fL (80-94); MONOCYTES # (AUTO) 0.4 K/uL (0.8-1.0); NEUTROPHILS # (AUTO) 4.6 K/uL (1.8-7.7); NEUTROPHILS % (AUTO) 53.3 % (42.2-75.2); PLATELET COUNT (AUTO) 331 K/uL (140-450); RED BLOOD CELL COUNT(AUTO) 4.74 MIL/uL (4.20-5.40); RED CELL DISTRIBUTION WIDTH 13.5 % (11.6-13.7); WHITE BLOOD COUNT (AUTO) 8.6 K/uL (4.8-10.8)
[2022-04-18 21:36] LABS: PROTHROMBIN TIME 9.5 secs (10.8-13.4)
[2022-04-18 21:39] LABS: ALBUMIN 4.1 g/dL (3.4-5.0); ANION GAP 11.7 (8-16); CARBON DIOXIDE 26.7 mmol/L (21-32); CREATININE 0.6 mg/dL (0.6-1.3); POTASSIUM 3.4 mmol/L (3.5-5.1); TOTAL BILIRUBIN 0.2 mg/dL (0.0-1.0)
--- NOTE | 2022-04-18 22:29 | NUR ---
Dr. Slater explain results and treatment plans.
[2022-04-18 22:36] VITALS: BP 132/82
[2022-04-18] MEDS ORDERED: ONDA-188 PO (22:36)
[2022-04-18] MEDS ORDERED: TRAM50TA1 PO (22:36)
--- NOTE | 2022-04-18 22:36 | NUR ---
Patient left without D/C papers.
== END 2022-04-18 22:36 | disposition home or self-care (01) ==
LOC: MED 18:21
DX: K62.5 Hemorrhage of anus and rectum (principal); F17.210 Nicotine dependence, cigarettes, uncomplicated; Z79.899 Other long term (current) drug therapy; Z98.890 Other specified postprocedural states
CPT/HCPCS: 36415; 80053; 81002; 81025; 83690; 85025; 85610; 85730; 86886; 86900; 86901; 99284

== ENCOUNTER 2022-05-06 17:46 | Emergency (ER) | payer OTHER ==
[~2022-05-06] VITALS: Ht 152.4 cm; Wt 83.9 kg
[~2022-05-06 17:46] MED LIST changes: +TRAM50TA1 PO
[2022-05-06 18:32] VITALS: BP 145/105
[2022-05-06 20:31] LABS: BASOPHILS % (AUTO) 0.5 % (0.0-2.0); EOSINOPHILS # (AUTO) 0.2 K/uL (0-0.4); HEMATOCRIT 42.1 % (36-48); LYMPHOCYTES # (AUTO) 3.5 K/uL (2.5-16.5); LYMPHOCYTES % (AUTO) 33.1 % (20.5-51.1); MEAN CORPUSCULAR HEMOGLOBIN 29 pg (27-31); MEAN CORPUSCULAR HGB CONC 33 g/dL (33-37); MEAN CORPUSCULAR VOLUME 86.4 fL (80-94); MONOCYTES # (AUTO) 0.6 K/uL (0.8-1.0); MONOCYTES % (AUTO) 5.2 % (1.7-9.3); NEUTROPHILS # (AUTO) 6.3 K/uL (1.8-7.7); NEUTROPHILS % (AUTO) 59.2 % (42.2-75.2); PLATELET COUNT (AUTO) 355 K/uL (140-450); RED BLOOD CELL COUNT(AUTO) 4.88 MIL/uL (4.20-5.40); RED CELL DISTRIBUTION WIDTH 13.2 % (11.6-13.7); WHITE BLOOD COUNT (AUTO) 10.6 K/uL (4.8-10.8)
[2022-05-06 20:52] LABS: ANION GAP 12.2 (8-16); CARBON DIOXIDE 24.3 mmol/L (21-32); CREATININE 0.6 mg/dL (0.6-1.3); POTASSIUM 3.5 mmol/L (3.5-5.1); TOTAL BILIRUBIN 0.2 mg/dL (0.0-1.0)
[2022-05-06] MEDS ORDERED: ONDANSETRON 4 MG/2 ML VIAL IVP ONE (22:00)
[2022-05-06] MEDS ORDERED: KETOROLAC 15 MG/ML VIAL IVP ONE (22:00)
[2022-05-06] MEDS ORDERED: NACL 0.9% 1,000 ML IV ONE (22:00)
--- NOTE | 2022-05-06 22:27 | NUR ---
PT TAKEN TO BED #7
--- NOTE | 2022-05-06 22:30 | NUR ---
27/F C/O ABD PAIN [id number] AFTER EATING CHILI. PAIN IS 9/10 ON THE RUQ MD AWARE, ORDERS CARRIED OUT. PATIETN HAS NAUSEA. PATIETN DENIES CP/SOB/D/C/VISUAL CHANGES AT THIS TIME. RR EVEN AND UNLABORED. PATIENT PLACED IN GOWN AND ON MONITOR. BED IN LOWEST POSTITION AND LOCKED. AAOX4 AND AMBULATORY. PMHX DEPRESSION NKA
[2022-05-06] MEDS ORDERED: ONDA-188 PO (22:37)
[2022-05-06] MEDS ORDERED: BEN10 PO (22:37)
[2022-05-06] MEDS ORDERED: MORPHINE SULFATE 4 MG/ML SYR IVP ONE (23:25)
--- NOTE | 2022-05-07 00:10 | NUR ---
PATIENT AMBULATED TO THE RR
--- NOTE | 2022-05-07 00:12 | NUR ---
PATIENT AMBULATED BACK TO BED 7
[2022-05-07 00:50] VITALS: BP 117/72
--- NOTE | 2022-05-07 00:50 | NUR ---
Patient discharged with v/s stable. Written and verbal after care instructions given Viral Gastroenteritis and explained. Patient alert, oriented and verbalized understanding of instructions. Ambulatory with steady gait. All questions addressed prior to discharge. ID band removed. Patient advised to follow up with PMD. Rx of Deb Antonio given.
--- NOTE | 2022-05-07 01:03 | NUR ---
The patient's care was reviewed and supervised by Luli Crooks RN.
[2022-05-07] MEDS ORDERED: BEN10 PO (20:08)
[2022-05-07] MEDS ORDERED: ONDA-188 SL (20:08)
== END 2022-05-07 00:50 | disposition home or self-care (01) ==
LOC: MED 17:46
DX: R10.11 Right upper quadrant pain (principal)
CPT/HCPCS: 36415; 80053; 81025; 83690; 85025; 96361; 96374; 96375; 99284; J1885; J2270; J2405; J7030

== ENCOUNTER 2022-05-07 17:49 | Emergency (ER) | payer OTHER ==
[~2022-05-07] VITALS: Ht 149.9 cm; Wt 80.4 kg
[2022-05-07 18:07] VITALS: BP 128/59
--- NOTE | 2022-05-07 18:18 | NUR ---
DR. SANDS AT PT BEDSIDE FOR FURTHER EVALUATION.
--- NOTE | 2022-05-07 18:18 | NUR ---
PT AMBULATE TO ROOM 5. DR SANDS AT BEDSIDE
[2022-05-07] MEDS ORDERED: ONDANSETRON 4 MG/2 ML VIAL IVP ONE (18:30)
--- NOTE | 2022-05-07 18:34 | NUR ---
PATIENT IN GOWN AND URINE OBTAINED
--- NOTE | 2022-05-07 18:35 | NUR ---
20G IV CATH PLACED L AC LABS COLLECTED AT BEDSIDE
--- NOTE | 2022-05-07 18:48 | NUR ---
27YR OLD FEMALE BIB SELF C/O ABD PAIN VOMITING DIARRHEA X2DAYS. PAIN LEVEL 10/10 PATIENT WAS SEEN HERE YESTERDAY. VOMITING AND DIARRHEA TODAY . ABD PAIN IS ALL OVER ABD. PT IS A&OX4. STATES SOME DIZZINESS.
--- NOTE | 2022-05-07 18:49 | NUR ---
URINE DIP AND URINE PREG COMPLETED
--- NOTE | 2022-05-07 19:01 | NUR ---
PT TO CT
[2022-05-07] MEDS ORDERED: KETOROLAC 15 MG/ML VIAL IVP ONE (19:40)
[2022-05-07] MEDS ORDERED: ALUMINUM HYD/MAG/SIMETHICONE 30 ML UDC PO ONE (19:40)
[2022-05-07] MEDS ORDERED: DICYCLOMINE 10 MG CAP PO ONE (19:40)
[2022-05-07] MEDS ORDERED: ONDA-188 SL (20:08)
[2022-05-07] MEDS ORDERED: BEN10 PO (20:08)
[2022-05-07 20:20] VITALS: BP 105/69
--- NOTE | 2022-05-07 20:20 | NUR ---
Patient discharged with v/s stable. Written and verbal after care instructions given and explained. Patient alert, oriented and verbalized understanding of instructions. Ambulatory with steady gait. All questions addressed prior to discharge. ID band removed. Patient advised to follow up with PMD. Rx of RUFINO EM given. Opportunity to ask questions provided and answered.
--- NOTE | 2022-05-07 20:32 | NUR ---
The patient's care was reviewed and supervised by Luli Crooks RN.
== END 2022-05-07 20:20 | disposition home or self-care (01) ==
LOC: MED 17:49
DX: A08.4 Viral intestinal infection, unspecified (principal); Z98.890 Other specified postprocedural states; Z79.899 Other long term (current) drug therapy
CPT/HCPCS: 74177; 81002; 81025; 96374; 96375; 99285; J1885; J2405; Q9967

== ENCOUNTER 2022-05-15 20:29 | Emergency (ER) | payer OTHER ==
[~2022-05-15] VITALS: Ht 139.7 cm; Wt 81.2 kg
[2022-05-15 20:40] VITALS: BP 110/76
[2022-05-15 21:19] LABS: BASOPHILS # (AUTO) 0.1 K/uL (0.00-0.22); BASOPHILS % (AUTO) 0.6 % (0.0-2.0); EOSINOPHILS # (AUTO) 0.2 K/uL (0-0.4); EOSINOPHILS % (AUTO) 2.3 % (0.0-4.0); HEMATOCRIT 40.8 % (36-48); HEMOGLOBIN 13.5 g/dL (12.0-16.0); LYMPHOCYTES # (AUTO) 3.7 K/uL (2.5-16.5); LYMPHOCYTES % (AUTO) 37.9 % (20.5-51.1); MEAN CORPUSCULAR HEMOGLOBIN 28 pg (27-31); MEAN CORPUSCULAR HGB CONC 33 g/dL (33-37); MEAN CORPUSCULAR VOLUME 85.6 fL (80-94); MONOCYTES # (AUTO) 0.5 K/uL (0.8-1.0); MONOCYTES % (AUTO) 4.9 % (1.7-9.3); NEUTROPHILS # (AUTO) 5.3 K/uL (1.8-7.7); NEUTROPHILS % (AUTO) 54.3 % (42.2-75.2); PLATELET COUNT (AUTO) 336 K/uL (140-450); RED BLOOD CELL COUNT(AUTO) 4.77 MIL/uL (4.20-5.40); RED CELL DISTRIBUTION WIDTH 13.2 % (11.6-13.7); WHITE BLOOD COUNT (AUTO) 9.8 K/uL (4.8-10.8)
--- NOTE | 2022-05-15 22:24 | NUR ---
27 yo/f presents to ED w c/o LUQ pain 10/10 throbbing radiating down and to sides constant x1 week worsening xtoday, +nausea, +chills, diarrhea and bloody stools. Pt denies any chest pain or sob, fevers, vomiting or constipation. Pt took tylenol x2 hours ago w/o relief. pmh: denies allergies: denies
--- NOTE | 2022-05-15 22:30 | NUR ---
ana sandra aware of pt pain/satus. no new orders at this time.
[2022-05-15 22:44] LABS: ALBUMIN 3.9 g/dL (3.4-5.0); ANION GAP 13.3 (8-16); CARBON DIOXIDE 24.1 mmol/L (21-32); CREATININE 0.6 mg/dL (0.6-1.3); POTASSIUM 3.4 mmol/L (3.5-5.1); TOTAL BILIRUBIN 0.2 mg/dL (0.0-1.0)
[2022-05-15] MEDS ORDERED: KETOROLAC 15 MG/ML VIAL IVP ONE (23:05)
--- NOTE | 2022-05-15 23:20 | NUR ---
ermd at bedside for pt assessment.
[2022-05-15] MEDS ORDERED: KETOROLAC 30 MG/ML VIAL IM ONE (23:25)
[2022-05-15] MEDS ORDERED: ONDANSETRON 4 MG ODT PO ONE (23:25)
--- NOTE | 2022-05-16 00:29 | NUR ---
pt c/o of ongoing abdominal pain, ermd made aware.
[2022-05-16] MEDS ORDERED: HYDROcodone/APAP 7.5/325 MG 1 TAB PO ONE (00:30)
--- NOTE | 2022-05-16 01:35 | NUR ---
PT REPORTS PAIN HAS IMPROVED BUT STILL PRESENT TO LUQ. ERMD MADE AWARE.
--- NOTE | 2022-05-16 01:49 | NUR ---
ERMD AT BEDSIDE FOR CONTINUITY OT PT CARE.
--- NOTE | 2022-05-16 02:48 | NUR ---
pt c/o of ongoing abdominal pain. papod made aware.
[2022-05-16] MEDS ORDERED: MORPHINE SULFATE 4 MG/ML SYR IVP ONE (03:45)
--- NOTE | 2022-05-16 04:17 | NUR ---
pt reports nausea, and x2 recent episodes of bloody diarrhea. ERMD aware.
--- NOTE | 2022-05-16 04:18 | NUR ---
ermd at bedside for continuity of pt care.
[2022-05-16] MEDS ORDERED: HYDR-5080 PO (04:23)
[2022-05-16] MEDS ORDERED: SIME80TA22 PO (04:23)
--- NOTE | 2022-05-16 04:48 | NUR ---
PT REPORTS PAIN HAS IMPROVED.
[2022-05-16 05:02] VITALS: BP 100/68
--- NOTE | 2022-05-16 05:02 | NUR ---
Patient discharged with v/s stable. Written and verbal after care instructions given and explained. Patient alert, oriented and verbalized understanding of instructions. Ambulatory with steady gait. All questions addressed prior to discharge. ID band removed. Patient advised to follow up with PMD. Rx of SIMETHICONE, NORCO 7.5-325 given. Patient educated on indication of medication including possible reaction and side effects. Opportunity to ask questions provided and answered.
== END 2022-05-16 05:02 | disposition home or self-care (01) ==
LOC: MED 20:29
DX: R19.7 Diarrhea, unspecified (principal); R11.0 Nausea; R10.9 Unspecified abdominal pain; Z98.890 Other specified postprocedural states
CPT/HCPCS: 36415; 71045; 80053; 81002; 81025; 83690; 85025; 96372; 96374; 99285; J1885; J2270; Q0092; Q0162

== ENCOUNTER 2022-05-18 19:07 | Emergency (ER) | payer OTHER ==
[~2022-05-18] VITALS: Ht 139.7 cm; Wt 81.2 kg
[~2022-05-18 19:07] MED LIST changes: +SIME80TA22 PO
[2022-05-18 19:24] VITALS: BP 113/84
--- NOTE | 2022-05-18 19:46 | NUR ---
PT TAKEN TO ER BED 02
[2022-05-18] MEDS ORDERED: LORazepam 2 MG/ML VIAL IVP ONE (20:25)
[2022-05-18] MEDS ORDERED: KETOROLAC 15 MG/ML VIAL IVP ONE (20:25)
[2022-05-18] MEDS ORDERED: FAMOTIDINE 20 MG/2 ML VIAL IVP ONE (20:25)
[2022-05-18] MEDS ORDERED: NACL 0.9% 1,000 ML IV ONE (20:25)
--- NOTE | 2022-05-18 20:27 | NUR ---
27 Y/O FEMALE BIBS FROM HOME, C/O CP SINCE 1500 TODAY. PT STATES SHE HAS CONSTANT 5/10 PAIN THAT RADIATES A NUMBNESS DOWN BOTH ARMS WHEN THEY ARE LIFTED. PT COMPLAINS OF DIZZINESS, LIGHTHEADED, AND N/V. PT DENIES COUGH OR FEVER. A/OX4, GCS-15; UNLABORED BREATHING AND SPEAKING IN FULL SENTENCES; AMBULATORY W/O ASSISTANCE. HX: ANXIETY AND DEPRESSION NKA MEDS: NORCO, ESCITALOPRAM, CIPRO, ZOFRAN, SIMETHICONE, AND QUETIAPINE
[2022-05-18] MEDS ORDERED: DICYCLOMINE HCL LIQUID 20 MG, ALUMINUM HYD/MAG/SIMETHICONE 30 ML, LIDOCAINE VISCOUS 2% ... PO ONE ×3 (20:30)
--- NOTE | 2022-05-18 20:33 | NUR ---
CNP AT BEDSIDE
[2022-05-18 20:38] LABS: BASOPHILS % (AUTO) 0.4 % (0.0-2.0); EOSINOPHILS # (AUTO) 0.1 K/uL (0-0.4); HEMOGLOBIN 13.1 g/dL (12.0-16.0); LYMPHOCYTES # (AUTO) 2.6 K/uL (2.5-16.5); LYMPHOCYTES % (AUTO) 27.7 % (20.5-51.1); MEAN CORPUSCULAR HEMOGLOBIN 29 pg (27-31); MEAN CORPUSCULAR HGB CONC 34 g/dL (33-37); MEAN CORPUSCULAR VOLUME 85.1 fL (80-94); MONOCYTES # (AUTO) 0.4 K/uL (0.8-1.0); MONOCYTES % (AUTO) 4.6 % (1.7-9.3); NEUTROPHILS # (AUTO) 6.1 K/uL (1.8-7.7); NEUTROPHILS % (AUTO) 66.3 % (42.2-75.2); PLATELET COUNT (AUTO) 313 K/uL (140-450); RED BLOOD CELL COUNT(AUTO) 4.58 MIL/uL (4.20-5.40); RED CELL DISTRIBUTION WIDTH 13.1 % (11.6-13.7); WHITE BLOOD COUNT (AUTO) 9.2 K/uL (4.8-10.8)
--- NOTE | 2022-05-18 20:41 | NUR ---
ULTRASOUND AT BEDSIDE
[2022-05-18 20:53] LABS: ANION GAP 13.3 (8-16); CARBON DIOXIDE 25.1 mmol/L (21-32); CHLORIDE 103 mmol/L (98-107); POTASSIUM 3.4 mmol/L (3.5-5.1); SODIUM SERUM 138 mmol/L (136-145)
[2022-05-18 21:23] LABS: CREATININE 0.6 mg/dL (0.6-1.3); GFR ARICAN-AMERICAN 152 mL/min (>90); GLUCOSE 96 mg/dL (74-106); UREA NITROGEN, BLOOD 6 mg/dL (7-18)
[2022-05-18] MEDS ORDERED: DICYCLOMINE HCL LIQUID 10 MG/5 ML UDC ONE (21:24)
[2022-05-18] MEDS ORDERED: ALUMINUM HYD/MAG/SIMETHICONE 30 ML UDC ONE (21:24)
[2022-05-18 21:31] LABS: ALBUMIN 3.9 g/dL (3.4-5.0); ASPARTATE AMINOTRANSFERASE 34 U/L (15-37); TOTAL BILIRUBIN 0.5 mg/dL (0.0-1.0)
[2022-05-18 21:43] LABS: LIPASE 105 U/L (73-393)
[2022-05-18] MEDS ORDERED: POTASSIUM CHLORIDE 10 MEQ TABER PO ONE (21:45)
[2022-05-18] MEDS ORDERED: IBUP-2213 PO (21:47)
[2022-05-18] MEDS ORDERED: ACET-10509 PO (21:59)
[2022-05-18 22:58] VITALS: BP 122/86
--- NOTE | 2022-05-18 22:59 | NUR ---
Patient discharged with v/s stable. Written and verbal after care instructions given and explained. Patient alert, oriented and verbalized understanding of instructions. Ambulatory with steady gait. All questions addressed prior to discharge. ID band removed. Patient advised to follow up with PMD. Rx of ACETAMINOPHEN TAB given. Patient educated on indication of medication including possible reaction and side effects. Opportunity to ask questions provided and answered. VSS, A/OX4, AMBULATORY, UNLABORED BREATHING, AND CALM DEMEANOR.
== END 2022-05-18 22:59 | disposition home or self-care (01) ==
LOC: MED 19:07
DX: G89.29 Other chronic pain (principal); R10.9 Unspecified abdominal pain; F41.9 Anxiety disorder, unspecified; M54.50 Low back pain, unspecified; Z79.899 Other long term (current) drug therapy
CPT/HCPCS: 36415; 71045; 76770; 80053; 81002; 81025; 83690; 84484; 85025; 93005; 96361; 96374; 96375; 99285; J1885; J2060; J3490; J7030; Q0092

== ENCOUNTER 2022-05-25 05:30 | Emergency (ER) | payer OTHER ==
[~2022-05-25] VITALS: Ht 149.9 cm; Wt 80.3 kg
[2022-05-25 05:48] VITALS: BP 118/68
--- NOTE | 2022-05-25 06:49 | NUR ---
Dr. Cunha examining patient.
[2022-05-25 07:55] LABS: BASOPHILS % (AUTO) 0.6 % (0.0-2.0); EOSINOPHILS # (AUTO) 0.3 K/uL (0-0.4); EOSINOPHILS % (AUTO) 3.5 % (0.0-4.0); HEMATOCRIT 41.2 % (36-48); HEMOGLOBIN 13.6 g/dL (12.0-16.0); LYMPHOCYTES # (AUTO) 2.7 K/uL (2.5-16.5); LYMPHOCYTES % (AUTO) 37.4 % (20.5-51.1); MEAN CORPUSCULAR HEMOGLOBIN 29 pg (27-31); MEAN CORPUSCULAR HGB CONC 33 g/dL (33-37); MEAN CORPUSCULAR VOLUME 86.5 fL (80-94); MONOCYTES # (AUTO) 0.6 K/uL (0.8-1.0); NEUTROPHILS # (AUTO) 3.6 K/uL (1.8-7.7); NEUTROPHILS % (AUTO) 50.5 % (42.2-75.2); PLATELET COUNT (AUTO) 331 K/uL (140-450); RED BLOOD CELL COUNT(AUTO) 4.76 MIL/uL (4.20-5.40); RED CELL DISTRIBUTION WIDTH 13.6 % (11.6-13.7); WHITE BLOOD COUNT (AUTO) 7.1 K/uL (4.8-10.8)
[2022-05-25] MEDS ORDERED: KETOROLAC 30 MG/ML VIAL ONE (08:04)
[2022-05-25] MEDS: KETOROLAC 30 MG/ML VIAL IM ONE (08:06)
[2022-05-25 08:17] LABS: ALBUMIN 3.9 g/dL (3.4-5.0); ANION GAP 13.6 (8-16); CARBON DIOXIDE 26.4 mmol/L (21-32); CREATININE 0.6 mg/dL (0.6-1.3); TOTAL BILIRUBIN 0.2 mg/dL (0.0-1.0)
--- NOTE | 2022-05-25 08:27 | NUR ---
27/F PRESENTS TO ED WITH C/O INTERMITTENT ABDOMINAL PAIN X2 WEEKS, PATIENT STATES N/V/D AND REPORTS BLOODY STOOL. PATIENT DENIES URINARY SYMPTOMS, DENIES FEVERS, CHILLS.
[2022-05-25 11:08] VITALS: BP 116/69
--- NOTE | 2022-05-25 11:08 | NUR ---
Patient discharged with v/s stable. Written and verbal after care instructions ABOUT ABDOMINAL PAIN given and explained. Patient verbalized understanding. Ambulatory with steady gait. All questions addressed prior to discharge. Advised to follow up with PMD.
[2022-05-25 17:22] LABS: APPEARANCE,URINE CLEAR (CLEAR); BILIRUBIN,URINE NEGATIVE (NEGATIVE); BLOOD, URINE NEGATIVE (NEGATIVE); COLOR,URINE YELLOW (YELLOW); LEUKOCYTE ESTERASE ,URINE NEGATIVE (NEGATIVE); NITRITE, URINE NEGATIVE (NEGATIVE); UGLUCOSE NEGATIVE (NEGATIVE)
== END 2022-05-25 11:08 | disposition home or self-care (01) ==
LOC: MED 05:30
DX: R10.9 Unspecified abdominal pain (principal); R11.2 Nausea with vomiting, unspecified; R19.7 Diarrhea, unspecified; Z90.49 Acquired absence of other specified parts of digestive tract
CPT/HCPCS: 36415; 80053; 81003; 81025; 83690; 84703; 85025; 96372; 99283; J1885

== ENCOUNTER 2022-05-29 15:27 | Emergency (ER) | payer OTHER ==
[~2022-05-29] VITALS: Ht 149.9 cm; Wt 79.1 kg
[2022-05-29 15:37] VITALS: BP 140/89
--- NOTE | 2022-05-29 15:40 | NUR ---
PT AMB TO BED 6.
--- NOTE | 2022-05-29 16:05 | NUR ---
27 Y/O FEMALE C/O EPIGASTRIC PAIN THAT RADIATES TO LLQ. PAIN IS DULL 10/10 THAT STARTED LAST NIGHT. TOOK TYLENOL AND MOTRIN WITHOUT RELIEF. SIMILAR PAIN EXPERIENCED 1 MO AGO. DENIES NV, CP, SOB, FEVER, OR CHILLS. RECENT EPISODES OF FECAL INCONTINENCE, UNABLE TO MAKE IT TO RESTROOM. 12 EPISODES OF DIARRHEA TODAY. STOOL IN WATERY AND YELLOW IN COLOR. ABDOMEN SOFT, FLAT, AND NON-TENDER. BOWEL SOUNDS ACTIVE X4. UNABLE TO TOLERATE SOLID FOODS CONSUMING ONLY FLUIDS AND SOUPS X1 WEEK. PT REPORTS PART OF LARGE INTESTINE REMOVED IN 2014. PMH: DEPRESSION, GERD MEDS: SEROQUEL, OMEPRAZOLE, LEXAPRO
[2022-05-29] MEDS ORDERED: DICYCLOMINE 10 MG CAP PO ONE (16:40)
[2022-05-29] MEDS ORDERED: KETOROLAC 30 MG/ML VIAL IVP ONE (16:40)
[2022-05-29] MEDS ORDERED: NACL 0.9% 1,000 ML IV ONE (16:40)
--- NOTE | 2022-05-29 16:40 | NUR ---
PATIENT AMBULATED TO RESTROOM WITH STEADY GAIT. STOOL NOTED WATERY AND YELLOW (1).
[2022-05-29 16:59] LABS: BASOPHILS % (AUTO) 0.3 % (0.0-2.0); EOSINOPHILS # (AUTO) 0.1 K/uL (0-0.4); EOSINOPHILS % (AUTO) 2.1 % (0.0-4.0); HEMOGLOBIN 14.4 g/dL (12.0-16.0); LYMPHOCYTES # (AUTO) 1.4 K/uL (2.5-16.5); LYMPHOCYTES % (AUTO) 23.6 % (20.5-51.1); MEAN CORPUSCULAR HEMOGLOBIN 29 pg (27-31); MEAN CORPUSCULAR HGB CONC 33 g/dL (33-37); MEAN CORPUSCULAR VOLUME 85.6 fL (80-94); MONOCYTES # (AUTO) 0.5 K/uL (0.8-1.0); MONOCYTES % (AUTO) 8.5 % (1.7-9.3); NEUTROPHILS # (AUTO) 3.8 K/uL (1.8-7.7); NEUTROPHILS % (AUTO) 65.5 % (42.2-75.2); PLATELET COUNT (AUTO) 329 K/uL (140-450); RED BLOOD CELL COUNT(AUTO) 5.02 MIL/uL (4.20-5.40); RED CELL DISTRIBUTION WIDTH 13.4 % (11.6-13.7); WHITE BLOOD COUNT (AUTO) 5.7 K/uL (4.8-10.8)
[2022-05-29 17:08] LABS: APPEARANCE,URINE CLEAR (CLEAR); BILIRUBIN,URINE NEGATIVE (NEGATIVE); BLOOD, URINE NEGATIVE (NEGATIVE); COLOR,URINE YELLOW (YELLOW); LEUKOCYTE ESTERASE ,URINE NEGATIVE (NEGATIVE); NITRITE, URINE NEGATIVE (NEGATIVE); UGLUCOSE NEGATIVE (NEGATIVE)
[2022-05-29 17:24] LABS: ALBUMIN 4.1 g/dL (3.4-5.0); ANION GAP 17.6 (8-16); CARBON DIOXIDE 17.7 mmol/L (21-32); CREATININE 0.7 mg/dL (0.6-1.3); POTASSIUM 4.3 mmol/L (3.5-5.1); TOTAL BILIRUBIN 0.2 mg/dL (0.0-1.0)
--- NOTE | 2022-05-29 19:30 | NUR ---
PATIENT SITTING IN BED. BOLUS IS CURRENTLY RUNNING. DOESNT APPEAR TO BE IN DISTRESS. RR EVEN AND UNLABORED. BED LOW AND LOCKED. ALL NEEDS MET.
--- NOTE | 2022-05-29 19:31 | NUR ---
REPORT GIVEN TO CHAITANYA BLAKELY. ALL QUESTIONS ANSWERED. TRANSFER OF CARE AT THIS TIME
--- NOTE | 2022-05-29 19:45 | NUR ---
PATIETN RESTING IN BED. DOESNT APPEAR TO BE IN DISTRESS. RR EVEN AND UNLABORED. ALL NEEDS MET
--- NOTE | 2022-05-29 21:00 | NUR ---
PATIENT RESTING IN BED
[2022-05-29] MEDS ORDERED: LOPE1TAB14 PO (22:04)
[2022-05-29] MEDS ORDERED: BEN10 PO (22:04)
--- NOTE | 2022-05-29 22:20 | NUR ---
IV removed, catheter intact and site benign. Applied folded 4x4 gauze and tape to stop bleeding.
[2022-05-29 22:27] VITALS: BP 100/67
--- NOTE | 2022-05-29 22:27 | NUR ---
Patient discharged with v/s stable. Written and verbal after care instructions given CHRONIC PAIN and explained. Patient alert, oriented and verbalized understanding of instructions. Ambulatory with steady gait. All questions addressed prior to discharge. ID band removed. Patient advised to follow up with PMD. Rx of BENTYL, AND IMODIUM MULTI-SYMPT given.
--- NOTE | 2022-05-29 22:28 | NUR ---
Chart checked and completed.
== END 2022-05-29 22:27 | disposition home or self-care (01) ==
LOC: MED 15:27
DX: R10.13 Epigastric pain (principal); R19.7 Diarrhea, unspecified; R11.2 Nausea with vomiting, unspecified; Z79.899 Other long term (current) drug therapy; Z98.890 Other specified postprocedural states
CPT/HCPCS: 36415; 80053; 81003; 81025; 83605; 83690; 85025; 87040; 96361; 96374; 99285; J1885; J7030

== ENCOUNTER 2022-07-09 14:02 | Emergency (ER) | payer OTHER ==
[~2022-07-09] VITALS: Ht 149.9 cm; Wt 78.5 kg
[~2022-07-09 14:02] MED LIST changes: +LOPE1TAB14 PO
[2022-07-09 14:28] VITALS: BP 127/77
--- NOTE | 2022-07-09 15:00 | NUR ---
BIB SELF C/O BODY ACHES , URINARY BURNING SENSATION , ABD PAIN X YESTERDAY. PMH: ANXIETY, DEPRESSION
[2022-07-09 16:02] LABS: BASOPHILS # (AUTO) 0.1 K/uL (0.00-0.22); BASOPHILS % (AUTO) 0.7 % (0.0-2.0); EOSINOPHILS # (AUTO) 0.1 K/uL (0-0.4); EOSINOPHILS % (AUTO) 1.7 % (0.0-4.0); HEMATOCRIT 41.6 % (36-48); LYMPHOCYTES # (AUTO) 3.4 K/uL (2.5-16.5); LYMPHOCYTES % (AUTO) 44.2 % (20.5-51.1); MEAN CORPUSCULAR HEMOGLOBIN 28 pg (27-31); MEAN CORPUSCULAR HGB CONC 34 g/dL (33-37); MEAN CORPUSCULAR VOLUME 83.5 fL (80-94); MONOCYTES # (AUTO) 0.4 K/uL (0.8-1.0); MONOCYTES % (AUTO) 5.5 % (1.7-9.3); NEUTROPHILS # (AUTO) 3.7 K/uL (1.8-7.7); NEUTROPHILS % (AUTO) 47.9 % (42.2-75.2); PLATELET COUNT (AUTO) 337 K/uL (140-450); RED BLOOD CELL COUNT(AUTO) 4.98 MIL/uL (4.20-5.40); RED CELL DISTRIBUTION WIDTH 13.5 % (11.6-13.7); WHITE BLOOD COUNT (AUTO) 7.7 K/uL (4.8-10.8)
[2022-07-09 16:15] LABS: ALBUMIN 4.1 g/dL (3.4-5.0); ANION GAP 13.2 (8-16); CARBON DIOXIDE 24.6 mmol/L (21-32); CREATININE 0.7 mg/dL (0.6-1.3); POTASSIUM 3.8 mmol/L (3.5-5.1); TOTAL BILIRUBIN 0.4 mg/dL (0.0-1.0)
[2022-07-09] MEDS ORDERED: IBUP-2213 PO (17:23)
[2022-07-09] MEDS ORDERED: CEPH500C16 PO (17:23)
[2022-07-09] MEDS ORDERED: KETOROLAC 30 MG/ML VIAL IM ONE (17:25)
--- NOTE | 2022-07-09 18:37 | NUR ---
Called for patient in lobby, no answer.
--- NOTE | 2022-07-09 19:15 | NUR ---
MEDICATED PER ERMDS ORDER, TOLERATED WELL
--- NOTE | 2022-07-09 19:20 | NUR ---
RESULTS BACK AND NOTED BY PA AND FOR D/C
[2022-07-09] MEDS ORDERED: KETOROLAC 30 MG/ML VIAL ONE (19:42)
[2022-07-09 19:45] VITALS: BP 121/80
--- NOTE | 2022-07-09 19:45 | NUR ---
Patient discharged with v/s stable. Written and verbal after care instructions given and explained. Patient alert, oriented and verbalized understanding of instructions. Ambulatory with steady gait. All questions addressed prior to discharge. ID band removed. Patient advised to follow up with PMD. Rx of KEFLEX, MOTRIN given. Patient educated on indication of medication including possible reaction and side effects. Opportunity to ask questions provided and answered.
== END 2022-07-09 19:45 | disposition home or self-care (01) ==
LOC: MED 14:02
DX: N39.0 Urinary tract infection, site not specified (principal); K80.20 Calculus of gallbladder without cholecystitis without obstruction; K21.9 Gastro-esophageal reflux disease without esophagitis; Z98.890 Other specified postprocedural states; Z79.899 Other long term (current) drug therapy; Z79.1 Long term (current) use of non-steroidal anti-inflammatories (NSAID); Z79.2 Long term (current) use of antibiotics; Z79.891 Long term (current) use of opiate analgesic
CPT/HCPCS: 36415; 74176; 76705; 80053; 81002; 81025; 83690; 85025; 96372; 99284; J1885; Q0092

== ENCOUNTER 2022-10-30 08:31 | Emergency (ER) | payer OTHER ==
[~2022-10-30] VITALS: Ht 157.5 cm; Wt 74.8 kg
[~2022-10-30 08:31] MED LIST changes: +CEPH500C16 PO; +TRAM-748 PO; -TRAM50TA1 PO
[2022-10-30 08:36] VITALS: BP 111/72
--- NOTE | 2022-10-30 09:00 | NUR ---
27F presents to ED with c/o dizziness, Lower ABD pain and headache x2days. Pt reports a constant throbbing like, 10/10 head pain, and a burning like, 10/10 lower ABD pain. Pt reports episodes of painful urination, diarrhea and nausea, denies vomiting. Pt reports taking tylenol this morning with no relief, intermittent chills, denies fevers or cold symptoms.
[2022-10-30] MEDS ORDERED: PROCHLORPERAZINE 10 MG/2 ML VIAL IM ONE (09:05)
[2022-10-30] MEDS ORDERED: KETOROLAC 30 MG/ML VIAL IM ONE (09:05)
[2022-10-30 09:22] LABS: APPEARANCE,URINE CLEAR (CLEAR); BILIRUBIN,URINE NEGATIVE (NEGATIVE); BLOOD, URINE NEGATIVE (NEGATIVE); COLOR,URINE YELLOW (YELLOW); LEUKOCYTE ESTERASE ,URINE NEGATIVE (NEGATIVE); NITRITE, URINE NEGATIVE (NEGATIVE); UGLUCOSE NEGATIVE (NEGATIVE)
[2022-10-30 09:31] LABS: BASOPHILS % (AUTO) 0.4 % (0.0-2.0); EOSINOPHILS # (AUTO) 0.1 K/uL (0-0.4); EOSINOPHILS % (AUTO) 1.9 % (0.0-4.0); HEMATOCRIT 41.1 % (36-48); HEMOGLOBIN 13.7 g/dL (12.0-16.0); LYMPHOCYTES # (AUTO) 2.7 K/uL (2.5-16.5); LYMPHOCYTES % (AUTO) 34.5 % (20.5-51.1); MEAN CORPUSCULAR HEMOGLOBIN 28 pg (27-31); MEAN CORPUSCULAR HGB CONC 33 g/dL (33-37); MEAN CORPUSCULAR VOLUME 83.4 fL (80-94); MONOCYTES # (AUTO) 0.3 K/uL (0.8-1.0); MONOCYTES % (AUTO) 4.4 % (1.7-9.3); NEUTROPHILS # (AUTO) 4.6 K/uL (1.8-7.7); NEUTROPHILS % (AUTO) 58.8 % (42.2-75.2); PLATELET COUNT (AUTO) 353 K/uL (140-450); RED BLOOD CELL COUNT(AUTO) 4.93 MIL/uL (4.20-5.40); RED CELL DISTRIBUTION WIDTH 14.4 % (11.6-13.7); WHITE BLOOD COUNT (AUTO) 7.8 K/uL (4.8-10.8)
[2022-10-30 09:55] LABS: ACETAMINOPHEN < 0.5 ug/ml (10-30); ALBUMIN 3.7 g/dL (3.4-5.0); ANION GAP 11.1 (8-16); ASPARTATE AMINOTRANSFERASE 26 U/L (15-37); CARBON DIOXIDE 29.7 mmol/L (21-32); CHLORIDE 106 mmol/L (98-107); CREATININE 0.6 mg/dL (0.6-1.3); GFR ARICAN-AMERICAN 152 mL/min (>90); GLUCOSE 99 mg/dL (74-106); POTASSIUM 3.8 mmol/L (3.5-5.1); SALICYLATE < 2.8 mg/dL (2.8-20.0); SODIUM SERUM 143 mmol/L (136-145); TOTAL BILIRUBIN 0.5 mg/dL (0.0-1.0); UREA NITROGEN, BLOOD 8 mg/dL (7-18)
[2022-10-30] MEDS ORDERED: NAPR-1704 PO ×2 (10:21→10:37)
[2022-10-30] MEDS ORDERED: ONDA-188 PO ×2 (10:21→10:37)
[2022-10-30] MEDS ORDERED: TAM75 PO ×2 (10:21→10:37)
[2022-10-30 10:33] VITALS: BP 111/72
--- NOTE | 2022-10-30 10:36 | NUR ---
Patient discharged with v/s stable. Written and verbal after care instructions given and explained. Patient alert, oriented and verbalized understanding of instructions. Ambulatory with steady gait. All questions addressed prior to discharge. ID band removed. Patient advised to follow up with PMD. Rx of naprosyn, zofran odt, tamiflu (sent) given. Patient educated on indication of medication including possible reaction and side effects. Opportunity to ask questions provided and answered. work note and labs given
== END 2022-10-30 10:33 | disposition home or self-care (01) ==
LOC: MED 08:31
DX: B34.9 Viral infection, unspecified (principal); Z20.822 Contact with and (suspected) exposure to COVID-19
CPT/HCPCS: 36415; 80053; 81003; 81025; 85025; 87426; 87804; 96372; 99284; G0480; J0780; J1885

== ENCOUNTER 2022-12-01 21:18 | Emergency (ER) | payer OTHER ==
[~2022-12-01] VITALS: Ht 149.9 cm; Wt 79.8 kg
[~2022-12-01 21:18] MED LIST changes: +NAPR-1704 PO; +TAM75 PO
[2022-12-01 22:29] VITALS: BP 108/60
[2022-12-01 22:59] LABS: APPEARANCE,URINE CLEAR (CLEAR); BILIRUBIN,URINE NEGATIVE (NEGATIVE); BLOOD, URINE NEGATIVE (NEGATIVE); COLOR,URINE YELLOW (YELLOW); LEUKOCYTE ESTERASE ,URINE NEGATIVE (NEGATIVE); NITRITE, URINE NEGATIVE (NEGATIVE); UGLUCOSE NEGATIVE (NEGATIVE)
--- NOTE | 2022-12-01 23:15 | NUR ---
PATIENT LEFT WITHOUT BEING SEEN BY DR. Bullard. NO FURTHER CARE PROVIDED FOR PATIENT.
== END 2022-12-01 23:15 | disposition left against medical advice (07) ==
LOC: MED 21:18
DX: R10.9 Unspecified abdominal pain (principal); Z53.21 Procedure and treatment not carried out due to patient leaving prior to being seen by health care provider
CPT/HCPCS: 81003; 81025

== ENCOUNTER 2022-12-13 19:52 | Emergency (ER) | payer OTHER ==
[~2022-12-13] VITALS: Ht 149.9 cm; Wt 80.7 kg
[2022-12-13 20:27] VITALS: BP 111/69
--- NOTE | 2022-12-13 20:43 | NUR ---
PT TAKEN TO RADIOLOGY
--- NOTE | 2022-12-13 20:52 | NUR ---
PT RETURN FROM RADIOLOGY
[2022-12-13] MEDS ORDERED: oxyCODONE/APAP 5/325 MG 1 TAB TAB PO ONE (21:35)
[2022-12-13] MEDS ORDERED: ACET-5629 PO (21:35)
== END 2022-12-13 23:43 | disposition home or self-care (01) ==
LOC: MED 19:52
DX: S82.832A Other fracture of upper and lower end of left fibula, initial encounter for closed fracture (principal); K21.9 Gastro-esophageal reflux disease without esophagitis; Z79.899 Other long term (current) drug therapy; W01.0XXA Fall on same level from slipping, tripping and stumbling without subsequent striking against object, initial encounter; Y93.01 Activity, walking, marching and hiking; Y92.89 Other specified places as the place of occurrence of the external cause; Y99.8 Other external cause status
CPT/HCPCS: 29515; 73610; 99283

== ENCOUNTER 2022-12-17 13:20 | Emergency (ER) | payer OTHER ==
[~2022-12-17] VITALS: Ht 149.9 cm; Wt 82.6 kg
[2022-12-17 13:24] VITALS: BP 105/66
--- NOTE | 2022-12-17 13:35 | NUR ---
REQUESTING RX OF PAIN MEDS. STATES SHE HERE 4 DAYS AGO FOR ANKLE FRACTURE AND GIVEN RX OF OXYCODONE BUT STATES SHE HAS FINISHED IT AND CANNOT FIND RELIEF OF PAIN WITH MOTRIN AND TYLENOL
[2022-12-17] MEDS ORDERED: ACET-8905 PO (14:01)
[2022-12-17] MEDS ORDERED: IBUP-2213 PO (14:01)
--- NOTE | 2022-12-17 14:16 | NUR ---
Patient discharged with v/s stable. Written and verbal after care instructions ABOUT ANKLE FRACTURE AND MED REFILL given and explained. Patient alert, oriented and verbalized understanding of instructions. Ambulatory with steady gait. All questions addressed prior to discharge. ID band removed. Patient advised to follow up with PMD. Rx of NORCO 5-325 AND IBUPROFEN given. Patient educated on indication of medication including possible reaction and side effects. Opportunity to ask questions provided and answered.
== END 2022-12-17 14:16 | disposition home or self-care (01) ==
LOC: MED 13:20
DX: S82.892D Other fracture of left lower leg, subsequent encounter for closed fracture with routine healing (principal); K21.9 Gastro-esophageal reflux disease without esophagitis; Z79.899 Other long term (current) drug therapy; X58.XXXD Exposure to other specified factors, subsequent encounter
CPT/HCPCS: 29515; 99283

== ENCOUNTER 2022-12-19 13:48 | Inpatient (IN) | payer OTHER ==
[~2022-12-19] VITALS: Ht 149.9 cm; Wt 82.1 kg
--- NOTE | 2022-12-19 07:37 | NUR ---
DIDN'T GAVE 1ST DOSE ROCEPHIN TO PT DUE TO PT IS OFF THE UNIT THAT TIME AND THERE'S NO SCHEDULED AND PRESCRIBED ROCEPHIN ON MY SHIFT. Addendum: 12/20/22 at 0739 by Deisy Morales RN WRONG TIME
[~2022-12-19 13:48] MED LIST changes: +ACET-8905 PO; -SIME80TA22 PO; +SIME80TA41 PO
[2022-12-19 13:50] VITALS: BP 118/72
[2022-12-19] MEDS ORDERED: DICYCLOMINE 10 MG CAP PO ONE (14:15)
[2022-12-19] MEDS ORDERED: NACL 0.9% 1,000 ML IV SCH (14:15)
--- NOTE | 2022-12-19 14:16 | NUR ---
PT AMB TO BED 6.
[2022-12-19] MEDS ORDERED: ALUMINUM HYD/MAG/SIMETHICONE 30 ML UDC PO ONE (14:25)
[2022-12-19] MEDS ORDERED: FAMOTIDINE 20 MG TAB PO ONE (14:25)
--- NOTE | 2022-12-19 14:50 | NUR ---
PATIENT PRESENTS TO ED WITH ABDOMINAL PAIN . DENIES N/V/D; SKIN IS PINK/WARM/DRY; AAOX4 AND AMBULATES WITH CRUTCHES D/T LT ANKLE FX; LUNGS CLEAR BL; HR EVEN AND REGULAR; PT DENIES ANY FEVER, CP, SOB, OR COUGH AT THIS TIME; PATIENT STATES PAIN OF 8/10 AT THIS TIME; VSS; PATIENT POSITIONED FOR COMFORT; HOB ELEVATED; BEDRAILS UP X2; BED DOWN. ER MD MADE AWARE OF PT STATUS.
[2022-12-19 15:27] LABS: BASOPHILS % (AUTO) 0.6 % (0.0-2.0); EOSINOPHILS # (AUTO) 0.2 K/uL (0-0.4); HEMATOCRIT 42.2 % (36-48); HEMOGLOBIN 13.9 g/dL (12.0-16.0); LYMPHOCYTES # (AUTO) 2.6 K/uL (2.5-16.5); LYMPHOCYTES % (AUTO) 40.7 % (20.5-51.1); MEAN CORPUSCULAR HEMOGLOBIN 28 pg (27-31); MEAN CORPUSCULAR HGB CONC 33 g/dL (33-37); MEAN CORPUSCULAR VOLUME 84.7 fL (80-94); MONOCYTES # (AUTO) 0.3 K/uL (0.8-1.0); MONOCYTES % (AUTO) 5.3 % (1.7-9.3); NEUTROPHILS # (AUTO) 3.3 K/uL (1.8-7.7); NEUTROPHILS % (AUTO) 50.4 % (42.2-75.2); PLATELET COUNT (AUTO) 270 K/uL (140-450); RED BLOOD CELL COUNT(AUTO) 4.98 MIL/uL (4.20-5.40); RED CELL DISTRIBUTION WIDTH 14.2 % (11.6-13.7); WHITE BLOOD COUNT (AUTO) 6.5 K/uL (4.8-10.8)
[2022-12-19 15:47] LABS: ALBUMIN 4.2 g/dL (3.4-5.0); ANION GAP 15.7 (8-16); CARBON DIOXIDE 25.6 mmol/L (21-32); CREATININE 0.7 mg/dL (0.6-1.3); POTASSIUM 4.3 mmol/L (3.5-5.1); TOTAL BILIRUBIN 0.4 mg/dL (0.0-1.0)
[2022-12-19 16:12] LABS: APPEARANCE,URINE CLEAR (CLEAR); BILIRUBIN,URINE NEGATIVE (NEGATIVE); BLOOD, URINE NEGATIVE (NEGATIVE); COLOR,URINE YELLOW (YELLOW); NITRITE, URINE NEGATIVE (NEGATIVE); UGLUCOSE NEGATIVE (NEGATIVE)
[2022-12-19 16:13] LABS: LEUKOCYTE ESTERASE ,URINE TRACE (NEGATIVE)
[2022-12-19 16:26] LABS: RBC,URINE 0-5 /HPF (0-5)
[2022-12-19 16:27] LABS: OTHER CASTS, URINE None Seen /LPF (None Seen)
[2022-12-19] MEDS ORDERED: MORPHINE SULFATE 4 MG/ML SYR IVP ONE (16:35)
[2022-12-19] MEDS ORDERED: ONDANSETRON 4 MG/2 ML VIAL IVP ONE (16:35)
--- NOTE | 2022-12-19 17:11 | NUR ---
PATIENT IN BED, NO S/S OF ACUTE DISTRESS, TOLERATED CT WELL. PLAN OF CARE ONGOING
[2022-12-19] MEDS ORDERED: MAG SULF 2000 MG/WATER PREMIX 50 ML IV PRN (18:50)
[2022-12-19] MEDS ORDERED: LORazepam 1 MG TAB PO PRN (18:50)
[2022-12-19] MEDS ORDERED: ACETAMINOPHEN 325 MG TAB PO PRN (18:50)
[2022-12-19] MEDS ORDERED: METOCLOPRAMIDE 10 MG/2 ML INJ VIAL IVP PRN (18:50)
[2022-12-19] MEDS ORDERED: KCL 20 MEQ/WATER INJ PREMIX 200 ML IV PRN (18:50)
[2022-12-19] MEDS ORDERED: ZOLPIDEM 5 MG TAB PO PRN (18:50)
[2022-12-19] MEDS ORDERED: POTASSIUM CHLORIDE 10 MEQ TABER PO PRN (18:50)
[2022-12-19] MEDS: NACL 0.9% 1,000 ML IV SCH (19:03)
--- NOTE | 2022-12-19 19:45 | NUR ---
27 Y/O F PRESENTS WITH SHARP BLOATING ABDOMINAL PAIN 10/10 X2 DAYS. PT HAS A 18G L AC. PT IS NPO. A&OX4, SKIN INTACT. PT HAS A L ANKLE FRACTURE CASTED WITH CRUTCHES AT BEDSIDE. PT IS AMBULATORY WITH ASSIST. PT STATED HER LAST MENSTRUAL WAS TWO YEARS AGO. PT IS AWAITING ADMISSION TO [facility]. PMH-GALLSTONES NKA
--- NOTE | 2022-12-19 19:50 | NUR ---
PT STATING SHE WANTS TO TAKE MEDS FROM HOME, EAT AND DRINK. PT WAS REMINDED THAT SHE IS NPO, AND THE PROTOCOL OF TAKING AT HOME MEDS WHILE IN THE HOSPITAL. PT APPEARS AGITATED ONCE PROTOCOL EXPLAINED.
--- NOTE | 2022-12-19 20:00 | NUR ---
PT AWAITING ADMISSION
[2022-12-19] MEDS ORDERED: QUET50TA PO (20:18)
[2022-12-19] MEDS ORDERED: QUET100T PO (20:18)
[2022-12-19] MEDS ORDERED: ATA25 PO (20:18)
[2022-12-19] MEDS ORDERED: ESCI20TA PO (20:18)
--- NOTE | 2022-12-19 20:30 | NUR ---
Patient will be admitted to care of DR FLETCHER. Admited to MED SURG. Will go to room 119A. Belongings list completed. Report to SRIKANTH MCKINNEY.
--- NOTE | 2022-12-19 20:40 | NUR ---
PT WAS ADMITTED TO [facility] DEPARTMENT FROM ER THRU WHEELCHAIR WITH DIAGNOSIS OF INTRACTABLE ABDOMINAL PAIN. PT IS AOX4, AMBULATORY WITH CRUTCHES, ABLE TO VERBALIZE NEEDS AND ABLE TO FOLLOW COMMANDS. PT IS ON ROOM AIR AND ON NPO EXCEPT MEDS DIET. PT HAS IV ON LEFT AC GAUGE 18 RUNNING WITH NS AT 80 ML/HR. PT SKIN IS INTACT BUT P PT HAS LEFT ANKLE FRACTURE. PT DENIES PAIN. NO S/S OF RESPIRATORY DISTRESS NOTED. PT WAS ORIENTED TO HOSPITAL/ROOM, BED BUTTONS, AND CALL LIGHT. ALL SAFETY MEASURES IMPLEMENTED. BED IN LOW POSITION, BED WHEELS ON LOCK AND CALL LIGHT WITHIN REACH.
--- NOTE | 2022-12-19 20:41 | NUR ---
DIDN'T GAVE 1ST DOSE ROCEPHIN TO PT DUE TO PT IS OFF THE UNIT THAT TIME AND THERE'S NO SCHEDULED AND PRESCRIBED ROCEPHIN ON MY SHIFT.
[2022-12-19] MEDS: ONDANSETRON 4 MG/2 ML VIAL IVP PRN (21:11)
[2022-12-19] MEDS: MORPHINE SULFATE 4 MG/ML SYR IVP PRN (21:11)
--- NOTE | 2022-12-19 21:11 | NUR ---
PRN PAIN MEDICATION WAS GIVEN TO PT DUE TO ABD PAIN WITH THE PAIN SCALE OF 8/10. ALL SAFETY MEASURES IMPLEMENTED. BED IN LOW POSITION, BED WHEELS ON LOCK AND CALL LIGHT WITHIN REACH.
--- NOTE | 2022-12-19 21:17 | NUR ---
SCHEDULED AND PRESCRIBED MEDICATION WAS GIVEN TO PT PER MD ORDER. ALL SAFETY MEASURES IMPLEMENTED. BED IN LOW POSITION, BED WHEELS ON LOCK AND CALL LIGHT WITHIN REACH.
--- NOTE | 2022-12-19 22:43 | NUR ---
The patient's care was reviewed and supervised by Luli Crooks RN.
[2022-12-20 01:31] VITALS: BP 106/67
[2022-12-20] MEDS: MORPHINE SULFATE 4 MG/ML SYR IVP PRN ×2 (02:12→06:19)
[2022-12-20] MEDS: ONDANSETRON 4 MG/2 ML VIAL IVP PRN ×2 (02:12→06:19)
--- NOTE | 2022-12-20 04:00 | NUR ---
PT IS ON SLEEP. CHEST RISE AND FALL SYMMETRICALLY NOTED. RESPIRATION IS EVEN AND UNLABORED. ALL SAFETY MEASURES IMPLEMENTED. BED IN LOW POSITION, BED WHEELS ON LOCK AND CALL LIGHT WITHIN REACH.
[2022-12-20 06:13] LABS: ANION GAP 11.2 (8-16); CARBON DIOXIDE 26.6 mmol/L (21-32); CREATININE 0.7 mg/dL (0.6-1.3); POTASSIUM 3.8 mmol/L (3.5-5.1)
[2022-12-20 06:40] LABS: BASOPHILS % (AUTO) 0.5 % (0.0-2.0); EOSINOPHILS # (AUTO) 0.2 K/uL (0-0.4); EOSINOPHILS % (AUTO) 3.2 % (0.0-4.0); HEMATOCRIT 34.8 % (36-48); HEMOGLOBIN 11.5 g/dL (12.0-16.0); LYMPHOCYTES # (AUTO) 2.8 K/uL (2.5-16.5); LYMPHOCYTES % (AUTO) 44.1 % (20.5-51.1); MEAN CORPUSCULAR HEMOGLOBIN 28 pg (27-31); MEAN CORPUSCULAR HGB CONC 33 g/dL (33-37); MEAN CORPUSCULAR VOLUME 84.9 fL (80-94); MONOCYTES # (AUTO) 0.4 K/uL (0.8-1.0); MONOCYTES % (AUTO) 6.6 % (1.7-9.3); NEUTROPHILS # (AUTO) 2.9 K/uL (1.8-7.7); NEUTROPHILS % (AUTO) 45.6 % (42.2-75.2); PLATELET COUNT (AUTO) 231 K/uL (140-450); WHITE BLOOD COUNT (AUTO) 6.3 K/uL (4.8-10.8)
[2022-12-20] MEDS: NACL 0.9% 1,000 ML IV SCH ×2 (07:42→19:50)
--- NOTE | 2022-12-20 07:42 | NUR ---
PT IS STABLE. NO ACUTE EVENTS THROUGHOUT THE NIGHT.NO S/SX OF DISTRESS AT THIS MOMENT.ALL NEEDS ATTENDED. ALL PRECAUTIONS IN PLACE. CALL LIGHT WITHIN REACH. ENDORSED TO DAY RN.
--- NOTE | 2022-12-20 07:46 | NUR ---
RECEIVED REPORT FROM TUGBOAT CAPTAIN NURSE, SRIKANTH, FOR CONTINUITY OF CARE. PT IN BED AT THIS TIME SLEEPING. RESPIRATIONS ARE EVEN AND UNLABORED ON ROOM AIR. NO SIGNS OF DISTRESS NOTED. PT IS ALERT AND ORIENTED X4, ABLE TO FOLLOW COMMANDS, ABLE TO VERBALIZE NEEDS. NO ACUTE EVENTS REPORTED FROM TUGBOAT CAPTAIN. CALL LIGHT WITHIN REACH. ALL SAFETY MEASURES IN PLACE.
[2022-12-20 08:00] VITALS: BP 95/58
--- NOTE | 2022-12-20 08:59 | NUR ---
PATIENT HAS BEEN SCREENED AND CATEGORIZED MODERATE NUTRITION RISK. PATIENT WILL BE SEEN WITHIN 3-5 DAYS OF ADMISSION. REVIEWED BY FRANSICO GRIFFIN RD
[2022-12-20] MEDS ORDERED: DOCUSATE SODIUM 100 MG GELCAP PO SCH (09:00)
--- NOTE | 2022-12-20 09:18 | NUR ---
IV ABX ADMINISTERED BY RN.
[2022-12-20] MEDS: HYDROcodone/APAP 5/325 MG 1 TAB TAB PO PRN (10:21)
--- NOTE | 2022-12-20 10:21 | NUR ---
PT COMPLAINING OF PAIN TO ABD. RATES PAIN 6/10. MEDICATED. WILL CONTINUE TO MONITOR.
--- NOTE | 2022-12-20 11:21 | NUR ---
WENT TO RE-ASSESS PAIN. PT SLEEPING AT THIS TIME. RESPIRATIONS ARE EVEN AND UNLABORED. NO SIGNS OF DISTRESS NOTED.
[2022-12-20] MEDS: MORPHINE SULFATE 2 MG/ML SYR IVP PRN ×2 (14:22→21:43)
[2022-12-20 16:00] VITALS: BP 97/60
--- NOTE | 2022-12-20 19:16 | NUR ---
ENDORSED PT TO QUALITY ASSURANCE INTERN NURSE, MARIBEL, FOR CONTINUITY OF CARE. PT IS STABLE.
--- NOTE | 2022-12-20 19:17 | NUR ---
RECD RESTING IN BED, AWAKE, A/OX4. RESPIRATION EVEN AND UNLABORED. IV OF NS INFUSING AT 80 ML/HR, LEFT AC G18. ABDOMEN SOFT NON TENDER. REQUESTING FOR PAIN MEDICINE, 04/28 BUT REFUSING NORCO, WANTS MORPHINE, BP IN THE LOW SIDE, 97/64. REPOSITION WITH PILLOWS FOR COMFORT. AGREED FOR NURSE TO COMEBACK AND CHECK AGAIN AFTER ONE HOUR. WILL CONTINUE TO MONITOR.
[2022-12-20 20:00] VITALS: BP 97/64
[2022-12-20] MEDS: DOCUSATE SODIUM 100 MG GELCAP PO SCH (21:00)
--- NOTE | 2022-12-20 22:00 | NUR ---
MORPHINE ADMINISTERED BY HANK GOMEZ BUT PATIENT SAID SHE DID NOT GET IT BECAUSE PAIN IS STILL THERE, EXPLAINED THAT IT TAKES THIRTY TO ONE HOUR BEFORE PAIN DECREASED.
--- NOTE | 2022-12-21 | NUR ---
SLEEPING COMFORTABLY IN BED. RESPIRATION EVEN AND UNLABORED.
[2022-12-21] MEDS: HYDROcodone/APAP 5/325 MG 1 TAB TAB PO PRN (02:08)
--- NOTE | 2022-12-21 02:08 | NUR ---
MEDICATED WITH NORCO PER MD ORDER. WENT BACK TO SLEEP AFTER TAKING MEDICATION.
--- NOTE | 2022-12-21 04:00 | NUR ---
SLEEPING SOUNDLY, SNORING IN BED.
[2022-12-21 04:25] VITALS: BP 103/66
[2022-12-21] MEDS: MORPHINE SULFATE 2 MG/ML SYR IVP PRN ×5 (04:27→21:09)
[2022-12-21 05:51] LABS: BASOPHILS % (AUTO) 0.4 % (0.0-2.0); EOSINOPHILS # (AUTO) 0.2 K/uL (0-0.4); EOSINOPHILS % (AUTO) 2.2 % (0.0-4.0); HEMOGLOBIN 12.9 g/dL (12.0-16.0); LYMPHOCYTES # (AUTO) 2.6 K/uL (2.5-16.5); LYMPHOCYTES % (AUTO) 32.1 % (20.5-51.1); MEAN CORPUSCULAR HEMOGLOBIN 28 pg (27-31); MEAN CORPUSCULAR HGB CONC 33 g/dL (33-37); MONOCYTES # (AUTO) 0.4 K/uL (0.8-1.0); MONOCYTES % (AUTO) 4.8 % (1.7-9.3); NEUTROPHILS # (AUTO) 4.9 K/uL (1.8-7.7); NEUTROPHILS % (AUTO) 60.5 % (42.2-75.2); PLATELET COUNT (AUTO) 258 K/uL (140-450); RED BLOOD CELL COUNT(AUTO) 4.59 MIL/uL (4.20-5.40); RED CELL DISTRIBUTION WIDTH 14.4 % (11.6-13.7)
[2022-12-21 06:39] LABS: ANION GAP 8.5 (8-16); CARBON DIOXIDE 27.3 mmol/L (21-32); CREATININE 0.6 mg/dL (0.6-1.3); POTASSIUM 3.8 mmol/L (3.5-5.1)
--- NOTE | 2022-12-21 07:25 | NUR ---
CONDITION REMAIN STABLE. ENDORSED TO HANK GRAFF FOR CONTINUITY OF CARE.
--- NOTE | 2022-12-21 07:52 | NUR ---
GOT REPORT FROM THE NIGHT NURSE, PT AWAKE DISCUSSED POC NO SOB [id number]
[2022-12-21] MEDS: NACL 0.9% 1,000 ML IV SCH ×2 (08:20→20:50)
[2022-12-21] MEDS: DOCUSATE SODIUM 100 MG GELCAP PO SCH ×2 (08:29→20:05)
[2022-12-21] MEDS ORDERED: KETOROLAC 15 MG/ML VIAL IVP PRN (09:05)
--- NOTE | 2022-12-21 13:28 | NUR ---
P.T. NOTES P.T. EVAL COMPLETED; REFER TO EVAL FOR DETAILS.
--- NOTE | 2022-12-21 14:47 | NUR ---
STARTED NEW IV ON THE RIGHT FORARM WITH 22 G .[id number]
--- NOTE | 2022-12-21 15:30 | NUR ---
DC PLANNING SW MET WITH PT AT BEDSIDE TO COMPLETE ASSESSMENT. PT RESIDES IN A SINGLE STORY HOME WITH HER FAMILY ( , PARENTS, 2 SISTERS AND 2 KIDS) AT THE ADDRESS LISTED ON FILE. PT IDENTIFIED BIJAN MCGRAW, SPOUSE [phone] EMERGENCY CONTACT. PT DECLINED TO ADD ADDITIONAL EC. PT DENIES AD IN PLACE AND DECLINED AD OFFERED BY SW. PT REPORTS MEETING W/ PCP DR. CARRERO NEEDED, LAST VISIT; DEC 18. PT REPORTS MEDICATION COMPLIANCE AND REPORTS RECEIVING MEDICATION FROM [facility] OR [facility] WHEN NEEDED. PT REPORTS SHE IS AMBULATORY AT BASELINE, HOWEVER, RECENTLY BROKE HER FOOT AT WORK ON 12/12 AND IS CURRENTLY UTILIZING CRUTCHES. PT REPORTS MENTAL HEALTH HX OF DEPRESSION, BIPOLAR D/O, AND SCHIZOPHRENIA. PT REPORTS SX ARE WELL MANAGED WITH MEDICATION AND REPORTS MEETING WITH HER PSYCHIATRIST EVERY 2 WEEKS. PT DENIES SUBSTANCE USE HX, DIABETES, DIALYSIS TX, HH, SNF PLACEMENT. PT REPORTS ADEQUATE FOOD IN THE HOME AND REPORTS HAVING OPEN CASE WITH [facility]. OT REPORTS DC PLAN IS TO RETURN HOME WITH PROVIDING TRANSPORTATION, WHEN MEDICALLY STABLE. SW INQUIRED ON RESOURCES NEEDED, PT DECLINED. Addendum: 12/21/22 at 1532 by Shanelle Goode Amended: Links added.
[2022-12-21 16:00] VITALS: BP 107/65
--- NOTE | 2022-12-21 20:05 | NUR ---
ADMINISTERED SCHEDULED DUE MEDICATIONS.
--- NOTE | 2022-12-21 20:17 | NUR ---
RECEIVED PATIENT IN BED AWAKE, ALERT, ORIENTED ON ROOM AIR. NO SOB NOTED. BREATHING REGULAR NON LABORED. IVF NS INFUSING 80 ML/HR ON THE RFA 22 GAUGE. PATIENT IS ABLE TO AMBULATE WITH CRUTCHES. CONTINENT. ON FULL LIQUID DIET.
[2022-12-22] VITALS: BP 128/82
[2022-12-22] MEDS: MORPHINE SULFATE 2 MG/ML SYR IVP PRN ×2 (01:15→05:33)
[2022-12-22] MEDS: NACL 0.9% 1,000 ML IV SCH ×2 (01:26→09:02)
[2022-12-22 05:47] LABS: BASOPHILS % (AUTO) 0.3 % (0.0-2.0); EOSINOPHILS # (AUTO) 0.3 K/uL (0-0.4); EOSINOPHILS % (AUTO) 3.2 % (0.0-4.0); HEMATOCRIT 37.2 % (36-48); HEMOGLOBIN 12.4 g/dL (12.0-16.0); LYMPHOCYTES # (AUTO) 2.9 K/uL (2.5-16.5); LYMPHOCYTES % (AUTO) 32.4 % (20.5-51.1); MEAN CORPUSCULAR HEMOGLOBIN 28 pg (27-31); MEAN CORPUSCULAR HGB CONC 33 g/dL (33-37); MEAN CORPUSCULAR VOLUME 84.9 fL (80-94); MONOCYTES # (AUTO) 0.6 K/uL (0.8-1.0); MONOCYTES % (AUTO) 6.7 % (1.7-9.3); NEUTROPHILS # (AUTO) 5.2 K/uL (1.8-7.7); NEUTROPHILS % (AUTO) 57.4 % (42.2-75.2); PLATELET COUNT (AUTO) 261 K/uL (140-450); RED BLOOD CELL COUNT(AUTO) 4.39 MIL/uL (4.20-5.40); RED CELL DISTRIBUTION WIDTH 14.2 % (11.6-13.7)
[2022-12-22 06:06] LABS: ANION GAP 11.7 (8-16); CARBON DIOXIDE 26.6 mmol/L (21-32); CREATININE 0.7 mg/dL (0.6-1.3); POTASSIUM 4.3 mmol/L (3.5-5.1)
--- NOTE | 2022-12-22 07:14 | NUR ---
ENDORSED PATIENT TO MORNING SHIFT NURSE FOR CONTINUITY OF CARE.
--- NOTE | 2022-12-22 07:30 | NUR ---
RECIEVED PATIENT FROM DESK LIEUTENANT NURSE.PATIENT IS SLEEPING.CHEST RISING AND FALLING EVEN WITH NO SIGNS OF DISTRESS.ALL SAFETY MEASURES IN PLACE.WILL CONTINUE TO MONITOR.
--- NOTE | 2022-12-22 07:33 | NUR ---
GOT REPORT FROM THE NIGHT NURSE, PT SLEEPING , NO SOB [id number]
[2022-12-22 08:00] VITALS: BP 91/67
[2022-12-22] MEDS ORDERED: HYDROcodone/APAP 5/325 MG 1 TAB TAB PO PRN (08:10)
[2022-12-22] MEDS: DOCUSATE SODIUM 100 MG GELCAP PO SCH (08:48)
[2022-12-22] MEDS ORDERED: AMOX1TAB8 PO (10:37)
[2022-12-22 11:07] VITALS: BP 91/67
[2022-12-22] MEDS ORDERED: ACET-9525 PO (12:18)
--- NOTE | 2022-12-22 12:57 | NUR ---
pt discharged home, discharge instruction given, id and iv removed, pt escorted to car by w\c without any discomfort.[email or web address]
--- NOTE | 2022-12-22 13:00 | NUR ---
PT LEFT WITH THE ARRANGEMENT OF [facility] ARRANGED, PT GOT PAIN MED CALLED TO THE PREFERRED PHARMACY. PT GIVEN THE DISCHARGE PACKAGE AND EXPLANATION.[id number]
--- NOTE | 2022-12-22 16:11 | NUR ---
DC PLANNING: ARRANGED HOME HEALTH WITH [facility] [id number] PER TATI AT [facility] WILL START THE CARE TOMORROW. CM TO FOLLOW
--- NOTE | 2022-12-22 16:40 | NUR ---
PHYSICAL THERAPY CO-SIGN The Physical Therapy Progress Notes documented by [facility] have been reviewed. Reviewed/Co-Signed by: Tayla Alcantar PT Documentation Done by:LIBBY NAPOLES BODY AND FRAME TECHNICIAN Addendum: 12/22/22 at 1641 by Tayla Alcantar PT Amended: Links added.
[2023-01-16] MEDS ORDERED: MIRABULK PO (01:08)
[2023-01-16] MEDS ORDERED: OMEP20EC11 PO (01:08)
[2023-01-17] MEDS ORDERED: HYDR-5080 PO (16:05)
== END 2022-12-22 13:57 | disposition home health service (06) | DRG 249 ==
LOC: MED 13:48 → MTU 18:53
PROVIDERS: ADMIT Internal Medicine; ATTEND Internal Medicine
DX: K52.9 Noninfective gastroenteritis and colitis, unspecified (principal); K80.20 Calculus of gallbladder without cholecystitis without obstruction; K56.7 Ileus, unspecified; D12.6 Benign neoplasm of colon, unspecified; Z20.822 Contact with and (suspected) exposure to COVID-19; Z82.5 Family history of asthma and other chronic lower respiratory diseases; Z82.49 Family history of ischemic heart disease and other diseases of the circulatory system
CPT/HCPCS: 36415; 71045; 74018; 76705; 80048; 80053; 81001; 83690; 83735; 84484; 85025; 87081; 87086; 93005; 96361; 96374; 97112; 97116; 97163-GP; 99285; J0696; J1644; J1885; J2270; J2405; J7060; Q0092; Q9967

== ENCOUNTER 2023-03-13 18:13 | Emergency (ER) | payer OTHER ==
[~2023-03-13] VITALS: Ht 149.9 cm; Wt 79.5 kg
[~2023-03-13 18:13] MED LIST changes: -ACET-10509 PO; -ACET-2619 PO; -ACET-5629 PO; -ACET-8905 PO; +AMOX1TAB8 PO; +ATA25 PO; -BEN10 PO; -CEPH500C16 PO; +ESCI20TA PO; -IBUP-2213 PO; -LOPE1TAB14 PO; -MECL-303 PO; +MIRABULK PO; -NAPR-1704 PO; -NITR100C7 PO; +OMEP20EC11 PO; -ONDA-188 PO; -ONDA-188 SL; +QUET100T PO; -SIME80TA41 PO; -SULF-59 PO; -TAM75 PO; -TRAM-748 PO
[2023-03-13 18:46] VITALS: BP 105/76
--- NOTE | 2023-03-13 18:49 | NUR ---
PT TO THE BATHROOM FOR URINE COLLECTION
[2023-03-13 19:17] LABS: APPEARANCE,URINE CLEAR (CLEAR); BILIRUBIN,URINE NEGATIVE (NEGATIVE); BLOOD, URINE NEGATIVE (NEGATIVE); COLOR,URINE YELLOW (YELLOW); LEUKOCYTE ESTERASE ,URINE NEGATIVE (NEGATIVE); NITRITE, URINE NEGATIVE (NEGATIVE); UGLUCOSE NEGATIVE (NEGATIVE)
[2023-03-13 19:20] LABS: BASOPHILS % (AUTO) 0.3 % (0.0-2.0); EOSINOPHILS # (AUTO) 0.2 K/uL (0-0.4); EOSINOPHILS % (AUTO) 1.3 % (0.0-4.0); HEMATOCRIT 41.4 % (36-48); HEMOGLOBIN 14.2 g/dL (12.0-16.0); LYMPHOCYTES # (AUTO) 2.7 K/uL (2.5-16.5); MEAN CORPUSCULAR HEMOGLOBIN 29 pg (27-31); MEAN CORPUSCULAR HGB CONC 34 g/dL (33-37); MEAN CORPUSCULAR VOLUME 85.4 fL (80-94); MONOCYTES # (AUTO) 0.6 K/uL (0.8-1.0); MONOCYTES % (AUTO) 4.8 % (1.7-9.3); NEUTROPHILS # (AUTO) 8.8 K/uL (1.8-7.7); NEUTROPHILS % (AUTO) 71.6 % (42.2-75.2); PLATELET COUNT (AUTO) 378 K/uL (140-450); RED BLOOD CELL COUNT(AUTO) 4.84 MIL/uL (4.20-5.40); RED CELL DISTRIBUTION WIDTH 14.7 % (11.6-13.7); WHITE BLOOD COUNT (AUTO) 12.2 K/uL (4.8-10.8)
[2023-03-13 19:49] LABS: ALBUMIN 4.6 g/dL (3.4-5.0); ANION GAP 13.8 (8-16); CARBON DIOXIDE 26.7 mmol/L (21-32); CREATININE 0.8 mg/dL (0.6-1.3); POTASSIUM 3.5 mmol/L (3.5-5.1); TOTAL BILIRUBIN 0.5 mg/dL (0.0-1.0)
--- NOTE | 2023-03-13 19:59 | NUR ---
PT TO BED 06.
--- NOTE | 2023-03-13 20:05 | NUR ---
28 Y/O F PRESENTS WITH R FLANK PAIN WITH NVD, PT STATED DIARRHEA IS NORMAL FOR HER. STOOL IS NORMALLY WATERY. PT STATED SHE HAS A HEADACHE WITH CHILLS. PT STATED SHE WAS AT THE GYM AT 5PM AND HEARD A POPPING SOUND BY HER R FLANK, FEELS LIKE BURNING SENSATION. PT IS A&OX4, SKIN INTACT, RESPIRATIONS EVEN AND UNLABORED AND ON CONTROL, MENSTRUAL CYCLE IS IRREGULAR. PMH-GALLBLADDER SURGERY JAN 13, 2023, BIG INTESTINE SURGERY NKA
--- NOTE | 2023-03-13 20:13 | NUR ---
Dr. [place] examining patient.
[2023-03-13] MEDS ORDERED: ONDANSETRON 4 MG ODT PO ONE (20:15)
[2023-03-13] MEDS ORDERED: KETOROLAC 30 MG/ML VIAL IM ONE (20:15)
--- NOTE | 2023-03-13 20:43 | NUR ---
PT TAKEN TO CT
--- NOTE | 2023-03-13 20:51 | NUR ---
PT RETURN FROM CT
[2023-03-13] MEDS ORDERED: LIDOCAINE 5% 1 EA PATCH TP ONE (21:35)
[2023-03-13] MEDS ORDERED: MORPHINE SULFATE 4 MG/ML SYR IM ONE (21:35)
[2023-03-13] MEDS ORDERED: ONDA-188 SL (21:51)
[2023-03-13] MEDS ORDERED: LID5T TP (21:51)
[2023-03-13] MEDS ORDERED: IBUP-2213 PO (21:51)
--- NOTE | 2023-03-13 22:00 | NUR ---
Patient discharged with v/s stable. Written and verbal after care instructions given and explained. Patient alert, oriented and verbalized understanding of instructions. Ambulatory with steady gait. All questions addressed prior to discharge. ID band removed. Patient advised to follow up with PMD. Rx of IBUPROFEN, LIDOCAINE hYD, AND ONDANSETRON given. Opportunity to ask questions provided and answered.
--- NOTE | 2023-03-13 22:24 | NUR ---
The patient's care was reviewed and supervised by Luli Crooks RN.
== END 2023-03-13 22:00 | disposition home or self-care (01) ==
LOC: MED 18:13
DX: S39.011A Strain of muscle, fascia and tendon of abdomen, initial encounter (principal); R11.2 Nausea with vomiting, unspecified; R19.7 Diarrhea, unspecified; K21.9 Gastro-esophageal reflux disease without esophagitis; Z90.49 Acquired absence of other specified parts of digestive tract; Z79.899 Other long term (current) drug therapy; Z79.1 Long term (current) use of non-steroidal anti-inflammatories (NSAID); Z79.2 Long term (current) use of antibiotics; X58.XXXA Exposure to other specified factors, initial encounter; Y92.89 Other specified places as the place of occurrence of the external cause; Y93.89 Activity, other specified; Y99.8 Other external cause status
CPT/HCPCS: 36415; 74176; 80053; 81003; 81025; 83690; 85025; 96372; 99285; J1885; J2270; Q0162